=== PATIENT | female | born 1995 | race Caucasian/White ===

== ENCOUNTER 2024-09-21 09:43 | Outpatient (AMB) | payer OTHER, SELFPAY ==
[2024-09-21 09:51] VITALS: BP 136/80; PULSE 97; O2SAT 98; BMI 38.6
--- NOTE | 2024-09-21 09:51 | A.OFFVIS_ITS ---
Vital Signs 09/21/24 09:51 Height 5 ft 3 in Weight 218 lb 0.595 oz BMI 38.6 BP 136/80 Blood Pressure Location Lt brachial Position Sitting Pulse 97 Pulse Source Pulse Oximeter Pulse Oximetry (%) 98 Oxygen Delivery Method Room Air Intake Visit Reasons: Lupus (ATC recs on file) Intake Note: Patient presents for follow up on lupus today. Allergies walnut Allergy (Mild, Verified 09/21/24 09:54) itchy mouth and throat HPI HPI Lupus (ATC recs on file): Details: She feels well. Denies fevers, rash, oral ulcers, dyspnea, pleurisy, urinary symptoms, joint symptoms. Raynaud's phenomenon is controlled on amlodipine 10 mg daily. She was previously on amlodipine 7.5mg daily but dose was increased due to patient experiencing mild hypertension. She continues to go to the gym regularly and is planning to see weight product management internship in September for consideration of medications to help with weight loss. [facility] Medical History (Updated 09/21/24 @ 10:48 by Chava Goddard MD) Hypertension Hidradenitis suppurativa Psoriasis Asthma Raynauds syndrome Lupus (systemic lupus erythematosus) Cyst on ear Hypertrophy, nasal, turbinate Deviated septum Surgical History (Updated 09/21/24 @ 09:59 by Mirlande Almaguer CMA) [place] teeth removed Family History (Updated 09/21/24 @ 10:02 by Mirlande Almaguer CMA) Father High blood cholesterol Hypertension Social History (Updated 09/21/24 @ 10:02 by Mirlande Almaguer CMA) Alcohol intake: current Alcohol intake frequency: a few times a month Patient Tobacco Use Status: Never used Tobacco Use of substances other than those prescribed or required for medical reasons: No Review of Systems Const All systems reviewed & are unremarkable except as noted in HPI and below Physical Exam Vital Signs: Last Vital Signs Pulse 97 09/21/24 09:51 BP 136/80 09/21/24 09:51 Pulse Ox 98 09/21/24 09:51 Oxygen Delivery Method Room Air 09/21/24 09:51 BMI result Body Mass Index 38.6 Const Other: General: Comfortable CVS: RRR Respiratory: clear to auscultation bilaterally. Good respiratory effort Skin: No lesions seen, no digital discoloration or ulceration MSK: No tenderness of any joints. No synovitis. Good range of motion of upper extremities and lower extremities. Results Reviewed Results Reviewed: Labs from 06/16/2024 reviewed. Assessment & Plan Assessment & Plan (1) Lupus (systemic lupus erythematosus): Comment: Diagnosed in 2019 based on positive PERLA 1:320, repeat 1:80, low C4, indeterminate double-stranded DNA, leukopenia, Raynaud's syndrome, hair loss, malar rash, pleurisy and polyarthralgias. Hydroxychloroquine started 09/2019. M ethotrexate 12/2020 to 02/2021 cause nausea vomiting abdominal pain, leflunomide 04/2021 caused diarrhea. Subcutaneous Benlysta started 01/15/2024. She remains in remission on Benlysta subcutaneous injections and hydroxychloroquine 200 mg daily. In the past when she was on hydroxychloroquine 400 mg daily she was experiencing uncontrolled IBS and subsequently hydroxychloroquine 200 mg daily was more well tolerated. If labs to assess lupus disease activity remains stable, I will continue current dose of hydroxychloroquine. Code(s): M32.9 - Systemic lupus erythematosus, unspecified Category: Medical Qualifiers: Systemic lupus erythematosus organ involvement: unspecified Systemic lupus erythematosus type: unspecified Qualified Code(s): M32.9 - Systemic lupus erythematosus, unspecified Plan: Continue hydroxychloroquine 200 mg daily. Requesting recent eye exam for hydroxychloroquine surveillance Continue Benlysta 200 mg every week Labs for disease and drug monitoring ordered. Patient is having labs done at [facility] this week and requested lab requisition Continue regular exercise routine Return to clinic in 3 months (2) Other residential (current) drug therapy: Code(s): Z79.899 - Other residential (current) drug therapy Category: Medical Plan: See above Orders: Orders T Spot TB Today M32.9 - Systemic lupus erythematosus, unspecified, Z79.899 - Other residential (current) drug therapy Alanine Aminotransferase Today Z79.60 - terminal press operator (current) use of unspecified immunomodulators and immunosuppressants Aspartate Amino Transferase Today Z79.60 - long-term (current) use of unspecified immunomodulators and immunosuppressants C Reactive Protein Today M32.9 - Systemic lupus erythematosus, unspecified, Z79.899 - Other keno terminal operator (current) drug therapy Complement C4 Today M32.9 - Systemic lupus erythematosus, unspecified, Z79.899 - Other residential (current) drug therapy Anti DNA DS Antibody Today M32.9 - Systemic lupus erythematosus, unspecified, Z79.899 - Other keno terminal operator (current) drug therapy Protein Creatinine Ratio, Ur Today M32.9 - Systemic lupus erythematosus, unspecified, Z79.899 - Other residential (current) drug therapy Hepatitis B,C Profile Today M32.9 - Systemic lupus erythematosus, unspecified, Z79.899 - Other residential (current) drug therapy Erythrocyte Sedimentation Rate Today M32.9 - Systemic lupus erythematosus, unspecified, Z79.899 - Other keno terminal operator (current) drug therapy Complete Blood Count Auto Diff Today Z79.60 - terminal press operator (current) use of unspecified immunomodulators and immunosuppressants Creatinine Today Z79.60 - terminal press operator (current) use of unspecified immunomodulators and immunosuppressants Complement C3 Today M3.9 - Systemic lupus erythematosus, unspecified, Z79.899 - Other residential (current) drug therapy Anti Extractable Nuclear Ag Today M3.9 - Systemic lupus erythematosus, unspecified, Z79.899 - Other residential (current) drug therapy PERLA Reflex Titer and Pattern Today M32.9 - Systemic lupus erythematosus, unspecified UA w Microscopic Today M32.9 - Systemic lupus erythematosus, unspecified Medications: New belimumab (Benlysta) inject into upper thigh or abdomen; rotate sites PA needed. Continuity of treatment 200 mg subcut QWEEK 4 mL 2RF hydroxychloroquine 200 mg PO DAILY 30 tabs 2RF hydroxychloroquine 200 mg PO DAILY 30 tabs 2RF Coding Level of Care Code Est Pt Level 4 (18104) Complex EM visit Add On G2211 Diagnoses Systemic lupus erythematosus, unspecified SLE type, unspecified organ involvement status M32.9 Systemic lupus erythematosus organ involvement: unspecified Systemic lupus erythematosus type: unspecified Other residential (current) drug therapy Z79.899
== END 2024-09-21 10:46 | disposition home or self-care (01) ==
PROVIDERS: PCP Pediatrics; Visit Provider Internal Medicine Rheumatology
DX: M32.9 Systemic lupus erythematosus, unspecified (principal); Z79.899 Other long term (current) drug therapy
CPT/HCPCS: 99214

== ENCOUNTER 2025-01-18 08:17 | Outpatient (AMB) | payer OTHER, SELFPAY ==
--- NOTE | 2025-01-18 08:22 | A.OFFVIS_ITS ---
Vital Signs 01/18/25 08:27 Height 5 ft 3 in Weight 209 lb 10.554 oz BMI 37.1 BP 140/100 H Blood Pressure Location Rt brachial Position Sitting Pulse 107 H Pulse Source Pulse Oximeter Pulse Oximetry (%) 100 Oxygen Delivery Method Room Air Intake Visit Reasons: Lupus Intake Note: Patient presents for follow up on lupus today. Accompanied by: Self / Same As Patient Allergies walnut Allergy (Mild, Verified 01/18/25 08:27) itchy mouth and throat HPI HPI Lupus: Details: She was feeling fine up until last week. She developed swelling of her left ankle. She attributes the swelling due to possibly spraining it. 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 She will have at least 4 rehearsals in a week. She was able to receive a Medrol Dosepak that she started last Wednesday prescribed by a provider from [facility] via telehealth appointment. On Wednesday she developed a rash in her lower extremities. Denies pruritus or burning sensation. Denies fevers, oral ulcers, dyspnea, pleurisy, dysphagia, joint pain or joint swelling. Ankle swelling resolved with Medrol Dosepak. She has not had any infections. She has not started on any new medications. She reports compliance with hydroxychloroquine and Benlysta subcutaneous injections weekly. [facility] Medical History Hypertension Hidradenitis suppurativa Psoriasis Asthma Raynauds syndrome Lupus (systemic lupus erythematosus) Cyst on ear Hypertrophy, nasal, turbinate Deviated septum Surgical History [place] teeth removed Family History Father High blood cholesterol Hypertension Social History Alcohol intake: current Alcohol intake frequency: a few times a month Patient Tobacco Use Status: Never used Tobacco Review of Systems Const All systems reviewed & are unremarkable except as noted in HPI and below Physical Exam Vital Signs: Last Vital Signs Pulse 107 H 01/18/25 08:27 BP 140/100 H 01/18/25 08:27 Pulse Ox 100 01/18/25 08:27 Oxygen Delivery Method Room Air 01/18/25 08:27 BMI result Body Mass Index 37.1 Const Other: General: Comfortable CVS: RRR Oral: No oral ulcerations Respiratory: clear to auscultation bilaterally. Good respiratory effort Skin: Diffuse non blanchable purpura in lower extremities, upper buttocks and lower abdomen. There are streaks of redness in areas where elastic from under where would lie on her skin. She has purpuric spots on her abdomen and lower to mid back. Some of the purpura in her lower extremities is palpable. MSK: No tender joints. Left ankle mild synovitis. Normal range of motion of upper extremity and lower extremity Assessment & Plan Assessment & Plan (1) Lupus (systemic lupus erythematosus): Comment: She had a recent episode of left ankle joint pain and swelling with subsequent development of palpable purpura involving trunk and lower extremities. Left ankle joint pain and swelling resolved with Medrol Dosepak. It would be rare for Medrol Dosepak to cause the current rash. 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 Differential diagnosis includes ITP/SLE flare, cryoglobulinemic associated vasculitis and cutaneous thrombotic process associated with antiphospholipid syndrome. She recently had labs 01/05, which reveal highly elevated ESR and CRP. At that time she did not have any symptoms. I am checking labs to evaluate lupus disease activity this visit along with workup for her rash including cryoglobulins and antibodies associated with antiphospholipid syndrome. Rheumatology history: Diagnosed in 2019 based on positive PERLA 1:320, repeat 1:80, low C4, indeterminate double-stranded DNA, leukopenia, Raynaud's syndrome, hair loss, malar rash, pleurisy and polyarthralgias. Hydroxychloroquine started 09/2019. Methotrexate 12/2020 to 02/2021 cause nausea vomiting abdominal pain, leflunomide 04/2021 caused diarrhea. Subcutaneous Benlysta started 01/15/2024. In the past when she was on hydroxychloroquine 400 mg daily she was experiencing uncontrolled IBS and subsequently hydroxychloroquine 200 mg daily was more well tolerated. Code(s): M32.9 - Systemic lupus erythematosus, unspecified Category: Medical Qualifiers: Systemic lupus erythematosus organ involvement: unspecified Systemic lupus erythematosus type: unspecified Qualified Code(s): M32.9 - Systemic lupus erythematosus, unspecified Plan: Patient has an appointment with Dermatology at [facility] in February. I have asked her to contact Dermatology for urgent evaluation next week for skin biopsy to aid in diagnosis and further management. She will contact office if she is unable to obtain an urgent appointment with Dermatology for assistance. Labs ordered. Per patient's insurance she needs to have labs done at [facility]. Empiric treatment with prednisone 40 mg daily and GI prophylaxis omeprazole 20 mg daily while on prednisone. She will call office in 2 weeks for clinical update Continue hydroxychloroquine 200 mg daily for now. After lab results are back, I will consider increasing hydroxychloroquine to 400 mg daily Continue Benlysta subcutaneous injection weekly Return to clinic in 1-2 months (2) Other emt intermediate (current) drug therapy: Code(s): Z79.899 - Other senior care (current) drug therapy Category: Medical Plan: See above Orders: Orders Alanine Aminotransferase Today M32.9 - Systemic lupus erythematosus, unspecified UA w Microscopic Today M32.9 - Systemic lupus erythematosus, unspecified Lupus Anticoagulant Panel Today M32.9 - Systemic lupus erythematosus, unspecified Beta-2 Glycoprotein Antibody Today M32.9 - Systemic lupus erythematosus, unspecified Cryoglobulin Today M32.9 - Systemic lupus erythematosus, unspecified, R21 - Rash and other nonspecific skin eruption Vitamin D 25-OH Total Today M32.9 - Systemic lupus erythematosus, unspecified Complete Blood Count Auto Diff Today Z79.60 - correction (current) use of unspecified immunomodulators and immunosuppressants Creatinine Today Z79.60 - manager intermediate (current) use of unspecified immunomodulators and immunosuppressants ANCA Vasculitides Today M32.9 - Systemic lupus erythematosus, unspecified Sm Sm/REGULATORY SERVICES CONSULTANT Antibodies Today M32.9 - Systemic lupus erythematosus, unspecified Complement C3 Today M32.9 - Systemic lupus erythematosus, unspecified Complement C4 Today M32.9 - Systemic lupus erythematosus, unspecified Protein Creatinine Ratio, Ur Today M32.9 - Systemic lupus erythematosus, unspecified Proteinase 3 PR3 Antibodies Today M32.9 - Systemic lupus erythematosus, unspecified Myeloperoxidase Antibody Today M32.9 - Systemic lupus erythematosus, un specified Aspartate Amino Transferase Today M32.9 - Systemic lupus erythematosus, unspecified Cardiolipin Antibodies Today M32.9 - Systemic lupus erythematosus, unspecified Medications: New prednisone Take 2 tablets daily with food. Call Dr. Goddard in 2 weeks for update. 40 mg (2 x 20 mg) PO DAILY 60 tabs 0RF prednisone Take 2 tablets daily with food 40 mg (2 x 20 mg) PO DAILY 60 tabs 0RF omeprazole Take with prednisone. GI ppx. 20 mg PO DAILY 30 caps 2RF omeprazole Take with prednisone. GI ppx. 20 mg PO DAILY 30 caps 2RF Coding Level of Care Code Est Pt Level 4 (93271) Complex EM visit Add On G2211 Diagnoses Systemic lupus erythematosus, unspecified SLE type, unspecified organ involvement status M32.9 Systemic lupus erythematosus organ involvement: unspecified Systemic lupus erythematosus type: unspecified Other emt intermediate (current) drug therapy Z79.899 Time Spent (min) 30
[2025-01-18 08:27] VITALS: BP 140/100; PULSE 107; O2SAT 100; BMI 37.1
--- OUTSIDE RECORDS SUMMARY | 2025-01-18 08:33 | XMS_ITS | Clinical Summary ---
Author Organization [address] Address [address] [place] [phone] Phone Care Team Providers Care Flight Deck Officer Name Role Phone Danyell Sams MD Primary Care Provider [phone] Allergies Active Allergy Reactions Criticality Noted Date Comments Prochlorperazine Unknown 01/07/2024 Raw Fruit Other (See Comments) Medium 01/07/2024 Itchy mouth Metoclopramide Unknown 01/07/2024 Raw Vegetable Other (See Comments) Medium 01/07/2024 Itchy mouth Tricyclic Antidepressants And Tricyclic Compounds Shock 01/07/2024 Venlafaxine Palpitations,Othe r (See Comments) Medium 01/07/2024 Heart palpitations, hyperactivity [place] Other (See Comments) Medium 01/07/2024 Itchy mouth Medications amLODIPine (NORVASC) 5 mg tablet Take 1 tablet (5 mg total) by mouth daily. Active hydroxychloroqui ne (PLAQUENIL) 200 mg tablet Take 1 tablet (200 mg total) by mouth daily. Active belimumab (BENLYSTA) 200 mg/mL auto-injector Inject 1 pen (200 mg total) under the skin once a week. 4 mL 1 05/01/2024 8:25 AM EDT Active levonorgestreL (LILETTA) IUD 52 mg (20.1 mcg/24 hour) Active amLODIPine (NORVASC) 2.5 mg tablet Active carboxymethylcel lulose (REFRESH PLUS) 0.5 % ophthalmic solution in dropperette Place 1 drop into both eyes as needed for dry eyes. Active amLODIPine (NORVASC) 10 mg tabletIndication s:Systemic lupus erythematosus, unspecified SLE type, unspecified organ involvement status (HC Code),Psoriasis, [place] allergy,Mild asthma without complication, unspecified whether persistent,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 90 tablet 3 4 Active EPINEPHrine 0.3 mg/0.3 mL Inj auto-injectorInd ications:Systemi c lupus erythematosus, unspecified SLE type, unspecified organ involvement status (HC Code),Psoriasis, [place] allergy,Mild asthma without complication, unspecified whether persistent,Ernestina ud's disease without gangrene Inject 0.3 mg into the muscle once as needed for anaphylaxis for up to 1 dose. 2 each 2 4 Active triamcinolone (KENALOG) 0.1 % creamIndications :plaque psoriasis Apply topically 2 (two) times daily. 450 g 3 4 Active albuterol sulfate 90 mcg/actuation HFA aerosol inhalerIndicatio ns:Systemic lupus erythematosus, unspecified SLE type, unspecified organ involvement status (HC Code),Psoriasis, [place] allergy,Mild asthma without complication, unspecified whether persistent,Ernestina ud's disease without gangrene Inhale 2 puffs into the lungs every 6 (six) hours as needed for wheezing. 6.7 g 4 Active belimumab (BENLYSTA) 200 mg/mL auto-injector Inject 1 pen (200 mg total) under the skin every 7 days, inject into upper thigh or abdomen; rotate sites, continuity of treatment. 4 mL 2 12/05/2024 8:48 AM EDT 4 Active methylPREDNISolo ne (MEDROL DOSEPACK) 4 mg tabletIndication s:Systemic lupus erythematosus, unspecified SLE type, unspecified organ involvement status (HC Code) follow package directions 21 tablet 5 01/20/20 Active Active Problems Problem Noted Date Diagnosed Date Hidradenitis suppurativa 01/07/2024 Psoriasis 01/07/2024 Raynaud phenomenon 01/07/2024 SLE (systemic lupus erythematosus) 01/07/2024 Encounters Date Type Department Care Team Description 01/12/2025 11:30 AM EDT Telemedicine [facility] [address] [place] [address] Cely Judge PA Systemic lupus erythematosus, unspecified SLE type, unspecified organ involvement status (HC Code) (Primary Dx) 01/12/2025 Nurse Triage [facility] Call Center [address] [place] [address] Trey Clancy RN 11/30/2024 Specialty Pharmacy [facility] [address] [place] [address] Ayad Veloz CPHT 10/24/2024 Specialty [facility] [address] [place] [address] Joaquina Telles, SHERI from Last 3 Months Immunizations Name Administration Dates Next Due COVID-19, MODERNA 12Y+, 0.5 mL 11/13/2020,2020 Influenza, injectable, MDCK, quad, preservative free 07/31/2023,06/27/2020 Influenza, split virus, trivalent, Preservative Free 08/02/2024 Family History Medical History Relation Name Comments Crohn's disease Maternal Aunt Rheum arthritis Paternal Uncle Relation Name Status Comments Maternal Aunt Alive Paternal Uncle Alive Social History Tobacco Use Types Packs/Day Years Used Date Smoking Tobacco: Never Smokeless Tobacco: Never Tobacco Cessation:Counseling Given: Not Answered Alcohol Use Standard Drinks/Week Comments Yes 0 (1 standard drink = 0.6 oz pur e alcohol) social - 1 glass wine weekly Comments Unknown Sex and Gender Information Value Date Recorded Sex Assigned at Not on file Legal Sex Female 11:26 AM EDT Gender Identity Female 04/20/2024 8:54 PM EDT Sexual Orientation Straight 04/20/2024 8: 54 PM EDT Last Filed Vital Signs Vital Sign Reading Time Taken Comments Blood Pressure 166/122 10/18/2024 4:32 PM EST Pulse 118 10/18/2024 4:32 PM EST Temperature 36 ??C (96.8 ??F) 10/18/2024 4:32 PM EST Respiratory Rate - - Oxygen Saturation 98% 10/18/2024 4:32 PM EST Inhaled Oxygen Concentration - - Weight 96.2 kg (212 lb) 10/18/2024 4:32 PM EST Height 162.6 cm (5' 4 ) 08/18/2024 9:25 AM EST Body Mass Index 36.39 08/18/2024 9:25 AM EST Plan of Treatment Upcoming Encounters Date Type Department Care Team (Latest Contact Info) Description 03/19/2025 2:45 PM EDT Office Visit Medical Dermatology at 2 [facility] 2 [facility] [address] [place] [address] Danyell Sams MD [address] [place] [phone] Wild Garcia MD 2 [facility] [address] [place] [phone] 04/26/2025 2:30 PM EDT Ophthalmology Imaging Ophthalmology at [address] [facility] [address] [place] [address] 05/14/2025 8:15 AM EDT Telemedicine Ophthalmology at [address] [facility] [address] [place] [address] Jayne Dominguez MD [address] [place] [phone] Health Maintenance Due Date Last Done Comments HIV screening 2009 Hepatitis C screening 2014 Pneumococcal Vaccine (2 - 49 years) (1 of 2 - PCV) 2015 Tetanus adult (Td q 10,TDAP once) 2016 Cervical cancer screening 2017 Covid-19 vaccine series ( season) 2024 07/31/2023, 11/13/2020, 10/16/2020 Influenza vaccine 05/28/2025 08/02/2024, 07/31/2023, 06/27/2020 RSV Immunization (1 - 1-dose 75+ series) 2071 Meningococcal Vaccine Aged Out No toshia janny eligible based on patient's age to complete this topic Goals Goal Patient Goal Type Associated Problems Recent Progress Patient-Stated? Author RxSp Therapeutic Goal General Not started(01/06 12:10 PM EDT) No Margarita Wu, Yesica Note: Lupus: Prevent increased number of flares. Good symptom control MTPs must be opened for patients not making appropriate progress towards their established therapeutic goals. Patient's progress towards goal: Insurance [employer] on file CIGNA on file CIGNA on file Care Teams Flight Deck Officer Relationship Specialty Start Date End Date Danyell Sams MD [address] [place] [phone] PCP - General Internal Medicine 08/18/24
--- OUTSIDE RECORDS SUMMARY | 2025-01-18 08:33 | XMS_ITS ---
Author Organization [address] Address [address] [place] [phone] Phone Care Team Providers Care Carpenter Assistant Name Role Phone Danyell Sams MD Primary Care Provider [phone] Rx Lupus Status:Enrolled (Active) Start date:01/06/2024 Enrollment date:01/07/2024 Enrollment reason:Identified from a specialty prescription Current support & services provided:Refill Management, Copay Maximizer Linked medications:belimumab (Active) Linked problems:SLE (systemic lupus erythematosus) (HC Code) (Active) Overview 04/03/24: pt is [facility], opted out of clin management -DA Continued Care and Services Coordination
--- OUTSIDE RECORDS SUMMARY | 2025-01-18 08:33 | XMS_ITS | Encounter Summary ---
Author Organization [facility] Address [address] [place] [id number] Care Team Providers Care Warehouse Incentive Selector Name Role Phone Danyell Sams MD Primary Care Provider [phone] Encounter Details Date Type Department Care Team ( Contact Info) Description 04/07/2023 Transcribed Orders [address] [address] Lawrence Lee MD [address] [place] [phone] Pre-employment health screening examination (Primary Dx) Social History Tobacco Use Types Packs/Day Years Used Date Smoking Tobacco: Never Assessed Comments Unknown Sex and Gender Information Value Date Recorded Sex Assigned at Not on file Legal Sex Female 11:26 AM EDT Gender Identity Female 04/20/2024 8:54 PM EDT Sexual Orientation Straight 04/20/2024 8: 54 PM EDT documented as of this encounter Plan of Treatment Upcoming Encounters Date Type Department Care Team (Latest Contact Info) Description 03/19/2025 2:45 PM EDT Office Visit Medical Dermatology at [address] [place] [address] [address] [place] [address] Danyell Sams MD [address] [place] [phone] Wild Garcia MD [address] [place] [address] [place] [phone] 04/26/2025 2:30 PM EDT Ophthalmology Imaging Ophthalmology at [address] [place] [address] 05/14/2025 8:15 AM EDT Telemedicine Ophthalmology at [address] [facility] [address] [facility] [place] [address] Jayne Dominguez MD [address] [place] [address] documented as of this encounter Results * Hepatitis B surface antibody ([facility] ) (04/07/2023 11:29 AM EDT) [facility] Hepatitis B Surface Antibody 27.14 > or = 12 mIU/mL 04/07/2023 6:07 PM EDT [facility]PART[facility] OF [facility] MEDICINE Comment: Patient is considered to be immune to infection with HBV. It has not been determined what the clinical significance is for values greater than or equal to 12 mIU/ml, other than the individual is considered to be immune to HBV infection. This assay was restandardized from the 1st to the 2nd WHO International Reference Standard on 03/08/18. A slight upward shift in values was noted. Blood Venipuncture / Unknown 04/07/2023 11:29 AM EDT 04/07/2023 3:56 PM EDT Lawrence Lee MD LAB BLOOD ORDERABLES nal Result [facility]PART[facility] OF [facility]ATORY [facility]ICINE [address] [place] [id number], [facility] [phone] * (ABNORMAL) QuantiFERON-TB (04/07/2023 11:29 AM EDT) [facility] QuantiFERON-TB Gold In-Tube Indetermi sherin(A) Negative 04/08/2023 7:48 PM EDT [facility] Comment: Result repeated and confirmed INDETERMINATE: Results are indeterminate for TB Antigen responsiveness. Indeterminate results may be caused by insufficient lymphocytes or inability of the patient's lymphocytes to generate IFN-gamma, reduced lymphocyte activity due to prolonged specimen transport or improper specimen handling, the presence of heterophile antibodies, or to intrinsic IFN-gamma secretion. Diagnoses of M. tuberculosis infection and decisions about medical or public health management should not be based on IGRA or TST results alone, but should include consideration of epidemiologic and medical history as well as other clinical information. This is a qualitative test. The TB antigen IU/mL value is required for documentation on certain government reporting forms (e.g., Form I-693), but this value should not be used to monitor disease progression or response to therapy. An overall Negative result does not completely rule out TB infection. An overall Positive result does not differentiate active from latent tuberculosis. As of April 12, 2018, this test is being performed using the QuantiFERON TB Gold Plus assay from [employer] which includes the detection of response to CD8+ T cells and as of November 25, 2020, it is being performed on an automated platform developed by [employer] in partnership with [employer]. Blood Venipuncture / Unknown 04/07/2023 11:29 AM EDT 04/07/2023 3:54 PM EDT Lawrence Lee MD LAB BLOOD ORDERABLES Fi nal Result [facility]IC[facility] [address] [place] [address] documented in this encounter Visit Diagnoses Diagnosis Pre-employment health screening examination- Primary Health examination of defined subpopulation documented in this encounter Care Teams Warehouse Incentive Selector Relationship Specialty Start Date End Date D[place]ell [place] [id number] PCP - General Internal Medicine 08/18/24 documented as of this encounter
--- OUTSIDE RECORDS SUMMARY | 2025-01-18 08:33 | XMS_ITS ---
Author Name [facility] Organization Unknown History of Medication Use Medication Directions Dispensed Refills Start Date End Date Status methylPREDNISolone (MEDROL DOSEPACK) 4 mg tablet follow package directions 5 active belimumab (BENLYSTA) 200 mg/mL auto-injector Inject 1 pen (200 mg total) under the skin every 7 days, inject into upper thigh or abdomen; rotate sites, continuity of treatment. 4 active albuterol sulfate 90 mcg/actuation HFA aerosol inhaler Inhale 2 puffs into the lungs every 6 (six) hours as needed for wheezing. 4 active amLODIPine (NORVASC) 10 mg tablet Take 1 tablet (10 mg total) by mouth daily. 4 active EPINEPHrine 0.3 mg/0.3 mL Inj auto-injector Inject 0.3 mg into the muscle once as needed for anaphylaxis for up to 1 dose. 4 active triamcinolone (KENALOG) 0.1 % cream Apply topically 2 (two) times daily. 4 active belimumab (BENLYSTA) 200 mg/mL auto-injector Inject 1 pen (200 mg total) under the skin once a week. 4 active amLODIPine (NORVASC) 2.5 mg tablet active amLODIPine (NORVASC) 5 mg tablet Take 1 tablet (5 mg total) by mouth daily. active carboxymethylcellulose (REFRESH PLUS) 0.5 % ophthalmic solution in dropperette Place 1 drop into both eyes as needed for dry eyes. active hydroxychloroquine (PLAQUENIL) 200 mg tablet Take 1 tablet (200 mg total) by mouth daily. active levonorgestreL (LILETTA) IUD 52 mg (20.1 mcg/24 hour) active Problems Problem Status Onset Date Problem Type Date of Resoluti on Source SLE (systemic lupus erythematosus) active 2024-01-07 [facility]Act [facility] Hidradenitis suppurativa active 2024-01-07 [facility]Act [facility] Psoriasis active 2024-01-07 ProblemAct [facility] C Raynaud phenomenon active 2024-01-07 ProblemAct [facility] Immunizations Vaccine Date Source Lot Number Status Influenza, split virus, triv alent, Preservative Free 08/02/2024 [facility] [id number] completed Influenza, injectable, MDCK, quad, preservative free 07/31/2023 [facility] [id number] completed COVID-19, MODERNA 12Y+, 0.5 mL 11/13/2020 [facility] 031L2 0A completed COVID-19, MODERNA 12Y+, 0.5 mL 10/16/2020 [facility] 012L2 0A completed Influenza, injectable, MDCK, quad, preservative free 06/27/2020 [facility] [id number] completed Encounters Encounter Type Encounter Reason Primary Diagnosis Location Date Ambulatory [facility] 01/13/20 25
== END 2025-01-18 09:11 | disposition home or self-care (01) ==
LOC: HO.RHES 08:18
PROVIDERS: Visit Provider Internal Medicine Rheumatology
DX: M32.9 Systemic lupus erythematosus, unspecified (principal); Z79.899 Other long term (current) drug therapy
CPT/HCPCS: 99214

== ENCOUNTER → 2025-01-18 08:17 | Outpatient (BNVA) | payer OTHER, SELFPAY | PROVIDERS: Visit Provider Internal Medicine Rheumatology ==

== ENCOUNTER 2025-03-29 13:50 | Outpatient (AMB) | payer OTHER, SELFPAY ==
--- OUTSIDE RECORDS SUMMARY | 2025-03-29 13:56 | XMS_ITS | Clinical Summary ---
Author Organization [address] Address [address] [place] [id number] Phone Care Team Providers Care Cabin Crew Name Role Phone Danyell Sams MD Primary Care Provider [phone] Allergies Active Allergy Reactions Criticality Noted Date Comments Prochlorperazine Unknown 01/07/2024 Raw Fruit Other (See Comments) Medium 01/07/2024 Itchy mouth Metoclopramide Unknown 01/07/2024 Raw Vegetable Other (See Comments) Medium 01/07/2024 Itchy mouth Tricyclic Antidepressants And Tricyclic Compounds Shock 01/07/2024 Venlafaxine Palpitations,Othe r (See Comments) Medium 01/07/2024 Heart palpitations, hyperactivity Koloa Other (See Comments) Medium 01/07/2024 Itchy mouth Medications amLODIPine (NORVASC) 5 mg tablet Take 1 tablet (5 mg total) by mouth daily. Active hydroxychloroq uine (PLAQUENIL) 200 mg tablet Take 1 tablet (200 mg total) by mouth daily. Active belimumab (BENLYSTA) 200 mg/mL auto-injector Inject 1 pen (200 mg total) under the skin once a week. 4 mL 1 4 8:25 AM EDT 03/28/20 24 Active levonorgestreL (LILETTA) IUD 52 mg (20.1 mcg/24 hour) Active amLODIPine (NORVASC) 2.5 mg tablet Active carboxymethylc ellulose (REFRESH PLUS) 0.5 % ophthalmic solution in dropperette Place 1 drop into both eyes as needed for dry eyes. Active amLODIPine (NORVASC) 10 mg tabletIndicati ons:Systemic lupus erythematosus, unspecified SLE type, unspecified organ involvement status (HC Code),Psoriasi s,Koloa allergy,Mild asthma without complication, unspecified whether persistent (HC CODE),Raynaud' s disease without gangrene Take 1 tablet (10 mg total) by mouth daily. 90 tablet 3 08/18/20 24 Active EPINEPHrine 0.3 mg/0.3 mL Inj auto-injectorI ndications:Sys temic lupus erythematosus, unspecified SLE type, unspecified organ involvement status (HC Code),Psoriasi s,Koloa allergy,Mild asthma without complication, unspecified whether persistent (HC CODE),Raynaud' s disease without gangrene Inject 0.3 mg into the muscle once as needed for anaphylaxis for up to 1 dose. 2 each 2 08/18/20 24 Active triamcinolone (KENALOG) 0.1 % creamIndicatio ns:plaque psoriasis Apply topically 2 (two) times daily. 450 g 3 08/18/20 24 Active belimumab (BENLYSTA) 200 mg/mL auto-injector Inject 1 pen (200 mg total) under the skin once every 7 days. Continue to inject into upper thigh or abdomen; rotate sites. 4 mL 2 5 10:52 AM EDT 01/18/20 25 Active hydroxychloroq uine (PLAQUENIL) 200 mg tablet Take 1 tablet (200 mg total) by mouth daily. 30 tablet 2 5 10:52 AM EDT 01/18/20 25 Active albuterol sulfate 90 mcg/actuation HFA aerosol inhalerIndicat ions:Systemic lupus erythematosus, unspecified SLE type, unspecified organ involvement status (HC Code),Psoriasi s,Koloa allergy,Mild asthma without complication, unspecified whether persistent (HC CODE),Raynaud' s disease without gangrene Inhale 2 puffs into the lungs every 6 (six) hours as needed for wheezing. 6.7 g 03/23/20 25 Active albuterol sulfate 90 mcg/actuation HFA aerosol inhalerIndicat ions:Systemic lupus erythematosus, unspecified SLE type, unspecified organ involvement status (HC Code),Psoriasi s,Koloa allergy,Mild asthma without complication, unspecified whether persistent (HC CODE),Raynaud' s disease without gangrene Inhale 2 puffs into the lungs every 6 (six) hours as needed for wheezing. 6.7 g 08/18/20 24 025 Discontinued(! Reorder (No Cancel Msg)) predniSONE (DELTASONE) 5 mg tablet Take 1 tablet (5 mg) orally daily; Taper prednisone as prescribed. 7 tablet 4:26 PM EDT 02/21/20 025 Discontinued Active Problems Problem Noted Date Diagnosed Date Hidradenitis suppurativa 01/07/2024 Psoriasis 01/07/2024 Raynaud phenomenon 01/07/2024 SLE (systemic lupus erythematosus) (HC Code) 08/2024 Encounters Date Type Department Care Team Description 03/27/2025 Results Follow-Up [facility] [address] [address] Danyell Sams MD Vitamin D 25 (vitamin D status)(MinMetabLab) (Y), Hemoglobin A1c, Lipid panel, Additional followed-up results: 4 03/26/2025 4:52 PM EDT - 03/26/2025 11:59 PM EDT Hospital Encounter [facility] [id number] Danyell Sams MD Systemic lupus erythematosus, unspecified (HC Code) ; Encounter for long-term (current) drug use; Systemic lupus erythematosus (HC Code) ; Systemic lupus erythematosus, unspecified SLE type, unspecified organ involvement status (HC Code) ; Psoriasis; Koloa allergy; Mild asthma without complication, unspecified whether persistent (HC CODE); Raynaud's disease without gangrene; Hidradenitis suppurativa Discharge Disposition: Home or Self Care 03/22/2025 Specialty Pharmacy [facility] [address] [place] [address] Roma Díaz CPHT 03/22/2025 Refill [facility] [address] [address] Danyell Sams MD Medication Refill 02/16/2025 5:12 PM EDT - 02/16/2025 11:59 PM EDT Hospital Encounter [facility] [address] [address] Chava Goddard MD Systemic lupus erythematosus, unspecified (HC Code) Discharge Disposition: Home or Self Care 02/16/2025 Transcribed Orders [facility] [address] [address] Chava Goddard MD Systemic lupus erythematosus, unspecified (HC Code) (Primary Dx); Encounter for long-term (current) drug use; Systemic lupus erythematosus (HC Code) 02/14/2025 Telephone Medical Dermatology at [address] [place] [address], [address] [address] Stevie Cornelius MD Other 02/13/2025 4:00 PM EDT Office Visit Medical Dermatology at [address] [place] [address], [address] [address] Stevie Cornelius MD Systemic lupus erythematosus, unspecified SLE type, unspecified organ involvement status (HC Code) (Primary Dx); Raynaud's phenomenon without gangrene 02/13/2025 Specialty Pharmacy [facility] [address] [place] [address] Tressa Quintero CPHT 01/22/2025 9:15 AM EDT - 01/22/2025 11:59 PM EDT Hospital Encounter [facility] [address] [place] [address] [facility] Systemic lupus erythematosus (HC Code) ; Rash and other nonspecific skin eruption Discharge Disposition: Home or Self Care 01/22/2025 Transcribed Orders [facility] [address] [place] [address] Chava Goddard MD Systemic lupus erythematosus (HC Code) (Primary Dx); Rash and other nonspecific skin eruption 01/19/2025 Scanned Document Medical Dermatology at [address] [place] [address], [address] [place] [address] Chava Goddard MD 01/19/2025 Specialty Pharmacy [facility] [address] [place] [address] Tressa Quintero CPHT 01/12/2025 11:30 AM EDT Telemedicine [facility] [address] [place] [address] Cely Judge PA Systemic lupus erythematosus, unspecified SLE type, unspecified organ involvement status (HC Code) (Primary Dx) 01/12/2025 Nurse Triage [facility] [address] [place] [address] Trey Clancy RN from Last 3 Months Immunizations Immunization Administration Dates Next Due COVID-19, MODERNA 12Y+, 0.5 mL 11/13/2020,2020 Influenza, injectable, MDCK, quad, preservative free 07/31/2023,06/27/2020 Influenza, split virus, trivalent, Preservative Free 08/02/2024 Family History Medical History Relation Name Comments Crohn's disease Maternal Aunt Rheumatoid arthritis Paternal Uncle Relation Name Status Comments [...] 118 10/18/2024 4:32 PM EST Temperature 36 C (96.8 F) 10/18/2024 4:32 PM EST Respiratory Rate - - Oxygen Saturation 98% 10/18/2024 4:32 PM EST Inhaled Oxygen Concentration - - Weight 96.2 kg (212 lb) 10/18/2024 4:32 PM EST Height 162.6 cm (5' 4 ) 08/18/2024 9:25 AM EST Body Mass Index 36.39 08/18/2024 9:25 AM EST Plan of Treatment Upcoming Encounters Date Type Department Care Team (Latest Contact Info) Description 04/26/2025 2:30 PM EDT Ophthalmology Imaging Ophthalmology at [address] [facility] [address] [place] [address] 05/14/2025 8:15 AM EDT Telemedicine Ophthalmology at [address] [facility] [address] [place] [address] Jayne Dominguez MD [address] [place] [address] Health Maintenance Due Date Last Done Comments HIV screening 2009 Pneumococcal Vaccine (2 - 49 years) (1 of 2 - PCV) 2015 Tetanus adult (Td q 10,TDAP once) 2016 Cervical cancer screening 2017 Covid-19 vaccine series ( season) 2024 07/31/2023, 11/13/2020, 10/16/2020 Influenza vaccine 05/28/2025 08/02/2024, 07/31/2023, 06/27/2020 RSV Immunization (1 - 1-dose 75+ series) 2071 Hepatitis C screening Completed 03/26/2025 Meningococcal Vaccine Aged Out No toshia janny eligible based on patient's age to complete this topic Goals Goal Patient Goal Type Associated Problems Recent Progress Patient-Stated? Author RxSp Therapeutic Goal General Not started(01/06 12:10 PM EDT) No Margarita Wu, PharmD Note: Lupus: Prevent increased number of flares. Good symptom control MTPs must be opened for patients not making appropriate progress towards their established therapeutic goals. Patient's progress towards goal: Procedures Procedure Name Priority Date/Time Associated Diagnosis Comments COMPREHENSIVE METABOLIC PANEL Routine 03/26/2025 5:13 PM EDT Systemic lupus erythematosus, unspecified SLE type, unspecified organ involvement status (HC Code) Psoriasis Koloa allergy Mild asthma without complication, unspecified whether persistent (HC CODE) Raynaud's disease without gangrene Hidradenitis suppurativa CBC AND DIFFERENTIAL Routine 03/26/2025 5:13 PM EDT Systemic lupus erythematosus, unspecified SLE type, unspecified organ involvement status (HC Code) Psoriasis Koloa allergy Mild asthma without complication, unspecified whether persistent (HC CODE) Raynaud's disease without gangrene Hidradenitis suppurativa T4, FREE Routine 03/26/2025 5:13 PM EDT Systemic lupus erythematosus, unspecified SLE type, unspecified organ involvement status (HC Code) Psoriasis Koloa allergy Mild asthma without complication, unspecified whether persistent (HC CODE) Raynaud's disease without gangrene Hidradenitis suppurativa COMPREHENSIVE METABOLIC PANEL Routine 03/26/2025 5:13 PM EDT Systemic lupus erythematosus, unspecified SLE type, unspecified organ involvement status (HC Code) Psoriasis Koloa allergy Mild asthma without complication, unspecified whether persistent (HC CODE) Raynaud's disease without gangrene Hidradenitis suppurativa CBC WITH AUTO DIFFERENTIAL Routine 03/26/2025 5:13 PM EDT Systemic lupus erythematosus, unspecified SLE type, unspecified organ involvement status (HC Code) Psoriasis Koloa allergy Mild asthma without complication, unspecified whether persistent (HC CODE) Raynaud's disease without gangrene Hidradenitis suppurativa DNA ANTIBODY, DOUBLE-STRANDED Routine 03/26/2025 5:13 PM EDT Systemic lupus erythematosus, unspecified (HC Code) Encounter for long-term (current) drug use Systemic lupus erythematosus (HC Code) VITAMIN D, 25-HYDROXY Routine 03/26/2025 5:13 PM EDT Systemic lupus erythematosus, unspecified (HC Code) Encounter for long-term (current) drug use Systemic lupus erythematosus (HC Code) BLAKELY AND COMMUNITY SERVICES COORDINATOR (CHITRA) ANTIBODIES, IGG (BH GH LMW Q YH) Routine 03/26/2025 5:13 PM EDT Systemic lupus erythematosus, unspecified (HC Code) Encounter for long-term (current) drug use Systemic lupus erythematosus (HC Code) MYELOPEROXIDASE ANTIBODY Routine 03/26/2025 5:13 PM EDT Systemic lupus erythematosus, unspecified (HC Code) Encounter for long-term (current) drug use Systemic lupus erythematosus (HC Code) HEPATITIS C AB WITH REFLEX TO HCV PCR Routine 03/26/2025 5:13 PM EDT Systemic lupus erythematosus, unspecified (HC Code) Encounter for long-term (current) drug use Systemic lupus erythematosus (HC Code) HEPATITIS B SURFACE ANTIGEN (BH GH L LMW YH) Routine 03/26/2025 5:13 PM EDT Systemic lupus erythematosus, unspecified (HC Code) Encounter for long-term (current) drug use Systemic lupus erythematosus (HC Code) C4 COMPLEMENT (BH GH L LMW YH) Routine 03/26/2025 5:13 PM EDT Systemic lupus erythematosus, unspecified (HC Code) Encounter for long-term (current) drug use Systemic lupus erythematosus (HC Code) C3 COMPLEMENT Routine 03/26/2025 5:13 PM EDT Systemic lupus erythematosus, unspecified (HC Code) Encounter for long-term (current) drug use Systemic lupus erythematosus (HC Code) C-REACTIVE PROTEIN (CRP) Routine 03/26/2025 5:13 PM EDT Systemic lupus erythematosus, unspecified (HC Code) Encounter for long-term (current) drug use Systemic lupus erythematosus (HC Code) VITAMIN D 25 (VITAMIN D STATUS)(MINMETABLAB)(YH ) Routine 03/26/2025 5:13 PM EDT Systemic lupus erythematosus, unspecified SLE type, unspecified organ involvement status (HC Code) Psoriasis Koloa allergy Mild asthma without complication, unspecified whether persistent (HC CODE) Raynaud's disease without gangrene Hidradenitis suppurativa TSH W/REFLEX TO FT4 (BH GH LMW Q YH) Routine 03/26/2025 5:13 PM EDT Systemic lupus erythematosus, unspecified SLE type, unspecified organ involvement status (HC Code) Psoriasis Koloa allergy Mild asthma without complication, unspecified whether persistent (HC CODE) Raynaud's disease without gangrene Hidradenitis suppurativa LIPID PANEL Routine 03/26/2025 5:13 PM EDT Systemic lupus erythematosus, unspecified SLE type, unspecified organ involvement status (HC Code) Psoriasis Koloa allergy Mild asthma without complication, unspecified whether persistent (HC CODE) Raynaud's disease without gangrene Hidradenitis suppurativa HEMOGLOBIN A1C Routine 03/26/2025 5:13 PM EDT Systemic lupus erythematosus, unspecified SLE type, unspecified organ involvement status (HC Code) Psoriasis Koloa allergy Mild asthma without complication, unspecified whether persistent (HC CODE) Raynaud's disease without gangrene Hidradenitis suppurativa URINE MICROSCOPIC ( GH LMW YH) Routine 03/26/2025 5:01 PM EDT Systemic lupus erythematosus, unspecified (HC Code) Encounter for long-term (current) drug use Systemic lupus erythematosus (HC Code) PROTEIN, TOTAL W/CREATININE, URINE, RANDOM ( GH LMW YH) Routine 03/26/2025 5:01 PM EDT Systemic lupus erythematosus, unspecified (HC Code) Encounter for long-term (current) drug use Systemic lupus erythematosus (HC Code) URINALYSIS-MACROSCOPIC W/REFLEX MICROSCOPIC Routine 03/26/2025 5:01 PM EDT Systemic lupus erythematosus, unspecified (HC Code) Encounter for long-term (current) drug use Systemic lupus erythematosus (HC Code) URINE MICROSCOPIC ( GH LMW YH) Routine 02/16/2025 5:17 PM EDT Systemic lupus erythematosus, unspecified (HC Code) URINALYSIS-MACROSCOPIC W/REFLEX MICROSCOPIC Routine 02/16/2025 5:17 PM EDT Systemic lupus erythematosus, unspecified (HC Code) CRYOGLOBULIN Routine 01/22/2025 9:38 AM EDT Systemic lupus erythematosus (HC Code) Rash and other nonspecific skin eruption from Last 3 Months Results * (ABNORMAL) Comprehensive metabolic panel (03/26/2025 5:13 PM EDT) Sodium 144 136 - 144 mmol/L 03/26/2025 8:33 PM EDT COUNT INCLUDES [facility] DEPARTMENT OF LABORATORY MEDICINE Potassium 4.4 3.3 - 5.3 mmol/L 03/26/2025 8:33 PM [facility] DEPARTMENT OF LABORATORY MEDICINE Chloride 103 98 - 107 mmol/L 03/26/2025 8:33 PM [facility] DEPARTMENT OF LABORATORY MEDICINE CO2 24 20 - 30 mmol/L 03/26/2025 8:33 PM [facility] DEPARTMENT OF LABORATORY MEDICINE Anion Gap 17 7 - 17 03/26/2025 8:33 PM T COUNT INCLUDES [facility] DEPARTMENT OF LABORATORY MEDICINE Glucose 82 70 - 100 mg/dL 03/26/2025 8:33 PM [facility] DEPARTMENT OF LABORATORY MEDICINE BUN 5(L) 6 - 20 mg/dL 03/26/2025 8:33 PM [facility] DEPARTMENT OF LABORATORY MEDICINE Creatinine 0.72 0.40 - 1.30 mg/dL 03/26/2025 8:33 PM [facility] DEPARTMENT OF LABORATORY MEDICINE Calcium 10.0 8.8 - 10.2 mg/dL 03/26/2025 8:33 PM [facility] DEPARTMENT OF LABORATORY MEDICINE BUN/Creatinine Ratio 6.9(L) 8.0 - 23.0 03/26/2025 8:33 PM [facility] DEPARTMENT OF LABORATORY MEDICINE Total Protein 7.7 5.9 - 8.3 g/dL 8:33 PM [facility] DEPARTMENT OF LABORATORY MEDICINE Albumin 4.5 3.6 - 5.1 g/dL 03/26/2025 8:33 PM [facility] DEPARTMENT OF LABORATORY MEDICINE Total Bilirubin 0.3 <=1.2 mg/dL 03/26/20 8:33 PM [facility] DEPARTMENT OF LABORATORY MEDICINE Alkaline Phosphatase 146(H) 9 - 122 U/L 03/26/2025 8:33 PM EDT COUNT INCLUDES [facility] DEPARTMENT OF LABORATORY MEDICINE Alanine Aminotransferase (ALT) 17 10 - 35 U/L 03/26/2025 8:33 PM EDT COUNT INCLUDES [facility] DEPARTMENT OF LABORATORY MEDICINE Comment:Calcium dobesilate c an cause artificially low ALT results at therapeutic concentrations Aspartate Aminotransferase (AST) 15 10 - 35 U/L 03/26/2025 8:33 PM EDT COUNT INCLUDES [facility]PART[facility] OF LABORATORY MEDICINE Globulin 3.2 2.0 - 3.9 g/dL 03/26/2025 8:33 PM EDT COUNT INCLUDES [facility] DEPART[facility] OF LABORATORY MEDICINE A/G Ratio 1.4 1.0 - 2.2 03/26/2025 8:33 PM EDT COUNT INCLUDES [facility] DEPARTMENT OF LABORATORY MEDICINE AST/ALT Ratio 0.9 Reference Range Not Established 03/26/2025 8:33 PM EDT COUNT INCLUDES [facility] DEPARTMENT OF LABORATORY MEDICINE eGFR (Creatinine) >60 >=60 mL/min/1.73m2 03/26/2025 8:33 PM EDT COUNT INCLUDES [facility] DEPARTMENT OF LABORATORY MEDICINE Comment: [facility] utilizes CKD-EPI Creatinine 2020 to report eGFR. Values < 60 mL/min/1.73 m2 may indicate CKD if present for more than three months AND creatinine is at steady state. The eGFR provides a rough estimate of kidney function. For further guidance, please refer to the CKD: Adult Crisis Clinician Signature pathway. Creatinine Delta 03/26/20 8:33 PM EDT COUNT INCLUDES [facility] DEPARTMENT OF LABORATORY MEDICINE Comment:No previous creatini ne <5.00 mg/dL is available within the previous 12 months to calculate a delta creatinine. Blood Venipuncture / Unknown 03/26/2025 5:13 PM EDT 03/26/2025 5:13 PM EDT us Danyell Sams MD LAB BLOOD ORDERABLES Final Re sult COUNT INCLUDES [facility] DEPARTMENT OF LABORATORY MEDICINE [address] [place] [address], [facility] [phone] * (ABNORMAL) TSH w/reflex to FT4 (BH GH LMW Q YH) (03/26/2025 5:13 PM EDT) Thyroid Stimulating Hormone 5.610(H) See Comment IU/mL 03/26/2025 8:33 PM EDT COUNT INCLUDES [facility] DEPARTMENT OF LABORATORY MEDICINE Comment: Male & Non- Females: 0.270-4.200 IU/mL 1st Trimester: 0.110-3.480 IU/mL 2nd Trimester: 0.320-3.850 IU/mL As TSH is known to naturally increase in winter, with age and due to certain non-thyroidal illnesses, please consider retesting adults with mild abnormalities (ie, TSH <10 IU/mL) after 2-3 months prior to initiating therapy. Blood Venipuncture / Unknown 03/26/2025 5:13 PM EDT 03/26/2025 5:13 PM EDT us Danyell Sams MD LAB BLOOD ORDERABLES Final Re sult Performing Organization Address [facility] Co de Phone Number COUNT INCLUDES [facility] DEPARTMENT OF LABORATORY MEDICINE [address] [place] [address] * Vitamin D, 25-hydroxy (03/26/2025 5:13 PM EDT) Pathologist [facility] Vitamin D 25-Hydroxy Total 12 See Comment ng/mL 03/26/2025 8:33 PM EDT COUNT INCLUDES [facility] DEPARTMENT OF LABORATORY MEDICINE Comment: Reference Ranges: <10 ng/mL - Severe deficiency 10-19 ng/mL - Mild to moderate deficiency 20-50 ng/mL - Optimum Levels 51-80 ng/mL - Increased risk of hypercalciuria >80 ng/mL - Toxicity possible Blood Venipuncture / Unknown 03/26/2025 5:13 PM EDT 03/26/2025 5:13 PM EDT us Chava Goddard MD LAB BLOOD ORDERABLES Clarissa l Result Performing Organization Address City/[facility]/ZIP Co de Phone Number COUNT INCLUDES [facility] DEPARTMENT OF LABORATORY MEDICINE [address] [place] [address] * [place]ak[place] and COMMUNITY SERVICES COORDINATOR (CHITRA) antibodies, IgG (BH GH LMW Q YH) (03/26/2025 5:13 PM EDT) Pathologist [facility] [place] Antibody <0.8 <7.0 Andria U/mL 03/28/2025 7:33 AM EDT COUNT INCLUDES [facility] DEPARTMENT OF LABORATORY MEDICINE Comment: <7 Andria U/mL Negative 7-10 Andria U/mL Equivocal >10 Andria U/mL Positive COMMUNITY SERVICES COORDINATOR (U1RNP) Antibody <2.7 <5.0 Andria U/mL 03/28/2025 7:33 AM EDT COUNT INCLUDES [facility] DEPARTMENT OF LABORATORY MEDICINE Comment: <5 Andria U/mL Negative 5-10 Andria U/mL Equivocal >10 Andria U/mL Positive Blood Venipuncture / Unknown 03/26/2025 5:13 PM EDT 03/26/2025 5:13 PM EDT Chava Goddard MD LAB BLOOD ORDERABLES Clarissa l Result Performing Organization Address City/[facility] Co de Phone Number COUNT INCLUDES [facility] DEPARTMENT OF LABORATORY MEDICINE [address] [place] [address] * Myeloperoxidase antibody (03/26/2025 5:13 PM EDT) [facility] Myeloperoxidase Ab <0.3 <3.5 Andria U/mL 03/28/2025 7:33 AM EDT COUNT INCLUDES THE [facility] DEPART[facility] OF LABORATORY MEDICINE Comment: <3.5 Andria U/mL Negative 3.5-5 Andria U/mL Equivocal >5.0 Andria U/mL Positive Blood Venipuncture / Unknown 03/26/2025 5:13 PM EDT 03/26/2025 5:13 PM EDT Chava Goddard MD LAB BLOOD ORDERABLES Clarissa l Result COUNT INCLUDES [facility] DEPART[facility] OF LABORATORY MEDICINE [address] [place] [address] * (ABNORMAL) CBC auto differential (03/26/2025 5:13 PM EDT) [facility] WBC 6.7 4.0 - 11.0 x1000/ L 03/26/2025 8:02 PM [facility] DEPARTMENT OF LABORATORY MEDICINE RBC 4.70 4.00 - 6.00 M/ L 03/26/2025 8:02 PM [facility] DEPARTMENT OF LABORATORY MEDICINE Hemoglobin 14.7 11.7 - 15.5 g/dL 03/26/2025 8:02 PM [facility] DEPARTMENT OF LABORATORY MEDICINE Hematocrit 43.70 35.00 - 45.00 % 03/26/2025 8:02 PM [facility] DEPARTMENT OF LABORATORY MEDICINE MCV 93.0 80.0 - 100.0 fL 03/26/2025 8:02 PM [facility] DEPARTMENT OF LABORATORY MEDICINE MCH 31.3 27.0 - 33.0 pg 03/26/2025 8:02 PM [facility] DEPARTMENT OF LABORATORY MEDICINE MCHC 33.6 31.0 - 36.0 g/dL 03/26/2025 8:02 PM [facility] DEPARTMENT OF LABORATORY MEDICINE RDW-CV 13.2 11.0 - 15.0 % 03/26/2025 8:02 PM [facility] DEPARTMENT OF LABORATORY MEDICINE Platelets 394 150 - 420 x1000/ L 03/26/2025 8:02 PM [facility] DEPARTMENT OF LABORATORY MEDICINE MPV 9.7 8.0 - 12.0 fL 03/26/2025 8:02 PM [facility] DEPARTMENT OF LABORATORY MEDICINE Neutrophils 70.4 39.0 - 72.0 % 03/26/2025 8:02 PM [facility] DEPARTMENT OF LABORATORY MEDICINE Lymphocytes 15.2(L) 17.0 - 50.0 % 03/26/2025 8:02 PM [facility] DEPARTMENT OF LABORATORY MEDICINE Monocytes 12.5(H) 4.0 - 12.0 % 03/26/2025 8:02 PM [facility] DEPARTMENT OF LABORATORY MEDICINE Eosinophils 0.9 0.0 - 5.0 % 03/26/2025 8:02 PM [facility] DEPARTMENT OF LABORATORY MEDICINE Basophil 0.8 0.0 - 1.4 % 03/26/2025 8:02 PM [facility] DEPARTMENT OF LABORATORY MEDICINE Immature Granulocytes 0.2 0.0 - 1.0 % 03/26/2025 8:02 PM EDT COUNT INCLUDES THE [facility] DEPARTMENT OF LABORATORY MEDICINE nRBC 0.0 0.0 - 1.0 % 03/26/2025 8:02 PM EDT COUNT INCLUDES THE [facility] DEPARTMENT OF LABORATORY MEDICINE Absolute Lymphocyte Count 1.01 0.60 - 3.70 x 1000/ L 03/26/2025 8:02 PM EDT COUNT INCLUDES THE [facility] DEPARTMENT OF LABORATORY MEDICINE Monocyte Absolute Count 0.83 0.00 - 1.00 x 1000/ L 03/26/2025 8:02 PM EDT COUNT INCLUDES THE [facility] DEPARTMENT OF LABORATORY MEDICINE Eosinophil Absolute Count 0.06 0.00 - 1.00 x 1000/ L 03/26/2025 8:02 PM EDT COUNT INCLUDES [facility] DEPARTMENT OF LABORATORY MEDICINE Basophil Absolute Count 0.05 0.00 - 1.00 x 1000/ L 03/26/2025 8:02 PM EDT COUNT INCLUDES [facility] DEPARTMENT OF LABORATORY MEDICINE Absolute Immature Granulocyte Count 0.01 0.00 - 0.30 x 1000/ L 03/26/2025 8:02 PM EDT COUNT INCLUDES THE [facility] DEPARTMENT OF LABORATORY MEDICINE Absolute nRBC 0.00 0.00 - 1.00 x 1000/ L 03/26/2025 8:02 PM EDT COUNT INCLUDES THE [facility] DEPARTMENT OF LABORATORY MEDICINE ANC (Abs Neutrophil Count) 4.69 2.00 - 7.60 x 1000/ L 03/26/2025 8:02 PM EDT COUNT INCLUDES THE [facility] DEPARTMENT OF LABORATORY MEDICINE Blood Venipuncture / Unknown 03/26/2025 5:13 PM EDT 03/26/2025 5:13 PM EDT Danyell Sams MD LAB BLOOD ORDERABLES Final Re sult COUNT INCLUDES THE [facility] DEPARTMENT OF LABORATORY MEDICINE [address] [place] [address] * Hepatitis C Ab with reflex to HCV PCR (03/26/2025 5:13 PM EDT) Hepatitis C Antibody Negative Negative 03/26/2025 10:39 PM EDT COUNT INCLUDES THE [facility] DEPARTMENT OF LABORATORY MEDICINE Comment:A negative result do es not exclude HCV infection, since antibodies are not detectable for 4-8 weeks after initial infection, or may not develop in compromised hosts. In high-risk individuals, repeat antibody testing in 2 months and/or HCV RNA PCR should be considered. Blood Venipuncture / Unknown 03/26/2025 5:13 PM EDT 03/26/2025 5:13 PM EDT Chava Goddard MD LAB BLOOD ORDERABLES Clarissa l Result Performing Organization Address [facility] Co de Phone Number COUNT INCLUDES THE [facility] DEPARTMENT OF LABORATORY MEDICINE [address] [place] [address] * DNA antibody, double-stranded (03/26/2025 5:13 PM EDT) Pathologist [facility] dsDNA Ab, IgG 5.9 <10.0 IU/mL 03/28/2025 7:33 AM EDT COUNT INCLUDES THE [facility] DEPARTMENT OF LABORATORY MEDICINE Comment: <10 IU/mL Negative 10-15 IU/mL Equivocal >15 IU/mL Positive Blood Venipuncture / Unknown 03/26/2025 5:13 PM EDT 03/26/2025 5:13 PM EDT Chava Goddard MD LAB BLOOD ORDERABLES Clarissa l Result Performing Organization Address [facility] de Phone Number COUNT INCLUDES THE [facility] DEPARTMENT OF LABORATORY MEDICINE [address] [place] [address] * (ABNORMAL) Vitamin D 25 (vitamin D status)([facility])(YH) (03/26/2025 5:13 PM EDT) Vit D, 25-Hydroxy 7(L) 20 - 50 ng/mL 03/27/2025 1:35 PM EDT [facility] Comment: A serum 25(OH) vitamin D concentration of at least 20 ng/mL is necessary to prevent secondary hyperparathyroidism. For reducing fracture risk or optimizing skeletal muscle function, higher serum 25(OH) vitamin D values, in the range of 30 ng/mL, are thought to be optimal. Blood Venipuncture / Unknown 03/26/2025 5:13 PM EDT 03/26/2025 5:13 PM EDT Danyell Sams MD LAB BLOOD ORDERABLES Final Re sult [facility] * Hepatitis B surface antigen ( AKIRA Menendez ) (03/26/2025 5:13 PM EDT) Hepatitis B Surface Antigen Negative Negative 03/26/2025 10:38 PM EDT COUNT INCLUDES THE [facility] DEPARTMENT OF LABORATORY MEDICINE Blood Venipuncture / Unknown 03/26/2025 5:13 PM EDT 03/26/2025 5:13 PM EDT Chava Goddard MD LAB BLOOD ORDERABLES Clarissa l Result Performing Organization Address City/[facility] Co de Phone Number COUNT INCLUDES [facility] DEPARTMENT OF LABORATORY MEDICINE [address] [place] [address] * C3 complement (03/26/2025 5:13 PM EDT) C3 Complement 148 90 - 180 mg/dL 03/26/2025 8:33 PM EDT COUNT INCLUDES THE [facility] DEPARTMENT OF LABORATORY MEDICINE Blood Venipuncture / Unknown 03/26/2025 5:13 PM EDT 03/26/2025 5:13 PM EDT Chava Goddard MD LAB BLOOD ORDERABLES Clarissa l Result Performing Organization Address City/[facility]/ZIP Co de Phone Number COUNT INCLUDES [facility] DEPARTMENT OF LABORATORY MEDICINE [address] [place] [address] * C4 complement ( AKIRA Menendez ) (03/26/2025 5:13 PM EDT) C4 Complement 22 10 - 40 mg/dL 03/26/2025 8:33 PM EDT COUNT INCLUDES THE [facility] DEPARTMENT OF LABORATORY MEDICINE Blood Venipuncture / Unknown 03/26/2025 5:13 PM EDT 03/26/2025 5:13 PM EDT Chava Goddard MD LAB BLOOD ORDERABLES Clarissa l Result Performing Organization Address [facility]/ZIP Co de Phone Number COUNT INCLUDES [facility] DEPARTMENT OF LABORATORY MEDICINE [address] [place] [address] * (ABNORMAL) C-reactive protein (CRP) (03/26/2025 5:13 PM EDT) CRP, High Sensitivity 7.6(H) See comment mg/L 03/26/2025 8:33 PM EDT COUNT INCLUDES THE [facility] DEPARTMENT OF LABORATORY MEDICINE Comment: hs-CRP Risk According to AHA/CDC Guidelines (mg/L): <1.0 Lower relative cardiovascular risk. 1.0-3.0 Average relative cardiovascular risk. 3.1-10.0 Higher relative cardiovascular risk. Consider retesting in 1 to 2 weeks to exclude a benign transient elevation in the baseline CRP value secondary to infection or inflammation. >10.0 Persistent elevation, upon retesting, may be associated with infection and inflammation. Blood Venipuncture / Unknown 03/26/2025 5:13 PM EDT 03/26/2025 5:13 PM EDT Chava Goddard MD LAB BLOOD ORDERABLES Clarissa l Result Performing Organization Address [facility] Co de Phone Number COUNT INCLUDES [facility] DEPARTMENT OF LABORATORY MEDICINE [address] [place] [address] * T4, free (03/26/2025 5:13 PM EDT) Free T4 0.88 See Comment ng/dL 03/26/2025 9:03 PM EDT COUNT INCLUDES THE [facility] DEPARTMENT OF LABORATORY MEDICINE Comment: For patients taking levothyroxine, the daily therapeutic dose may cause some patients to have slightly higher FT4 than in the general population and TSH should be the main arbiter of dosing adequacy for those whose hypothyroidism is of primary origin (ie. not related to hypothalamic-pituitary disease.) Of 26 commonly used pharmaceuticals tested in vitro, only furosemide caused elevated free thyroxine (FT4) findings at the daily therapeutic dosage level. Male & Non- Females: 0.80-1.70 ng/dL 1st Trimester: 0.90-1.40 ng/dL 2nd Trimester: 0.70-1.30 ng/dL Blood Venipuncture / Unknown 03/26/2025 5:13 PM EDT 03/26/2025 5:13 PM EDT Danyell Sams MD LAB BLOOD ORDERABLES Final Re sult Performing Organization Address [facility] Co de Phone Number COUNT INCLUDES [facility] DEPARTMENT OF LABORATORY MEDICINE [address] [place] [id number] [phone] * Hemoglobin A1c (03/26/2025 5:13 PM EDT) [facility] Hemoglobin A1c 5.1 4.0 - 5.6 % % 03/27/2025 2:32 PM EDT COUNT INCLUDES THE [facility] DEPARTMENT OF LABORATORY MEDICINE Comment: Hemoglobin A1c values of 5.7-6.4 % identify individuals with an increased risk for future diabetes and to whom the term pre-diabetes may be applied. Hemoglobin A1c values greater than 6.4% on more than one occasion are diagnostic of diabetes. Lowering HbA1c to below 7% is considered to reduce microvascular and neuropathic complications of diabetes. A s of 03/07/2025, this test is now being performed by Capillary Electrophoresis ([facility]). There is no change in reference range. Results from the prior method are comparable. Estimated Average Glucose mg/dL 100 mg/dL 03/27/2025 2:32 PM EDT COUNT INCLUDES THE [facility] DEPARTMENT OF LABORATORY MEDICINE Comment:Estimated average gl ucose (eAG) is a calculated value designed to estimate the expected average blood glucose level throughout the day from a single measurement of glycated hemoglobin A1C (HbA1c) and follows the calculation proposed by the [place] [employer] (Diabetes Care 31: 1-6, 2008). It may have less accuracy in children, women and patients with certain erythrocyte disorders. Blood Venipuncture / Unknown 03/26/2025 5:13 PM EDT 03/26/2025 5:13 PM EDT Danyell Sams MD LAB BLOOD ORDERABLES Final Re sult Performing Organization Address [facility] Co de Phone Number COUNT INCLUDES [facility] DEPARTMENT OF LABORATORY MEDICINE [address] [place] [address] * (ABNORMAL) Lipid panel (03/26/2025 5:13 PM EDT) [facility] Cholesterol 186 See Comment mg/dL 03/26/2025 8:33 PM EDT COUNT INCLUDES THE [facility] DEPARTMENT OF LABORATORY MEDICINE Comment: Total Cholesterol (mg/dL) Adults (>18 years) Children (<18 years) Desirable <200 <170 Borderline-High 200-239 170-199 High >=240 >=200 HDL 62 >=40 mg/dL 03/26/2025 8:[facility] Triglycerides 70 See Comment mg/dL 03/26/2025 8:33 PM EDT COUNT INCLUDES THE [facility] DEPARTMENT OF LABORATORY MEDICINE Comment: Triglycerides (mg/dL) Adults (>18 years) Children (<18 years) Desirable <150 Not Established Borderline-High 150-199 Not Established High 200-499 Not Established Chol/HDL Ratio 3.0 0.0 - 5.0 03/26/2025 8:33 PM [facility] LDL Calculated 111(H) See Comment mg/dL 03/26/2025 8:33 PM [facility] DEPARTMENT OF LABORATORY MEDICINE Comment: Effective 03/04/2022, LDL is calculated using the Curran-WILL equation, which is more accurate than the Friedewald and Noam-Gage equations. LDL Cholesterol (mg/dL) Adults (>18 years) Children (<18 years) Desirable <100 <110 Above Desirable 100-129 Not Established Borderline-High 130-159 110-129 High 160-189 >=130 Very High >=190 Not Established Blood Venipuncture / Unknown 03/26/2025 5:13 PM EDT 03/26/2025 5:13 PM EDT Danyell Sams MD LAB BLOOD ORDERABLES Final Re sult Performing Organization Address [facility] Co de Phone Number COUNT INCLUDES [facility] DEPARTMENT OF LABORATORY MEDICINE [address] [place] [address] * (ABNORMAL) Urine microscopic ([facility]) (03/26/2025 5:01 PM EDT) Only the most recent of2 resultswithin the time period is included. RBC/HPF, UA 51(H) 0 - 2 /HPF 03/26/2025 8:12 PM EDT COUNT INCLUDES THE [facility] DEPARTMENT OF LABORATORY MEDICINE WBC/HPF, UA 99(H) 0 - 5 /HPF 03/26/2025 8:12 PM EDT COUNT INCLUDES THE [facility] DEPARTMENT OF LABORATORY MEDICINE Bacteria, UA Rare None-Rare /HPF 03/26/2025 8:12 PM EDT COUNT INCLUDES THE [facility] DEPARTMENT OF LABORATORY MEDICINE Urine Squamous Epithelial Cells, UA 8(H) 0 - 5 /HPF 03/26/2025 8:12 PM EDT COUNT INCLUDES THE [facility] DEPARTMENT OF LABORATORY MEDICINE Urine Collection / Unknown 03/26/2025 5:01 PM EDT 03/26/2025 5:01 PM EDT us Chava Goddard MD URINE ORDERABLES Final Re sult Performing Organization Address [facility]/ZIP Co de Phone Number COUNT INCLUDES [facility] DEPARTMENT OF LABORATORY MEDICINE [address] [place] [address] * (ABNORMAL) Urinalysis-macroscopic w/reflex microscopic (03/26/2025 5:01 PM EDT) Only the most recent of2 resultswithin the time period is included. Clarity, UA Cloudy(A) Clear 03/26/2025 8:06 PM EDT COUNT INCLUDES THE [facility] DEPARTMENT OF LABORATORY MEDICINE Color, UA Yellow Yellow, Colorless 03/26/2025 8:06 PM EDT COUNT INCLUDES THE [facility] DEPARTMENT OF LABORATORY MEDICINE Specific [place], UA 1.027 1.005 - 1.030 03/26/2025 8:06 PM EDT COUNT INCLUDES THE [facility] DEPARTMENT OF LABORATORY MEDICINE pH, UA 5.5 5.5 - 7.5 03/26/2025 8:06 PM EDT COUNT INCLUDES THE [facility] DEPARTMENT OF LABORATORY MEDICINE Protein, UA 1+(A) Negative, Trace 03/26/2025 8:06 PM EDT COUNT INCLUDES THE [facility] DEPARTMENT OF LABORATORY MEDICINE Glucose, UA Negative Negative 03/26/2025 8:06 PM EDT COUNT INCLUDES THE [facility] DEPARTMENT OF LABORATORY MEDICINE Ketones, UA 1+(A) Negative 03/26/2025 8:06 PM EDT COUNT INCLUDES THE [facility] DEPARTMENT OF LABORATORY MEDICINE Blood, UA 2+(A) Negative 03/26/2025 8:06 PM EDT COUNT INCLUDES [facility] DEPARTMENT OF LABORATORY MEDICINE Bilirubin, UA Negative Negative 03/26/2025 8:06 PM EDT COUNT INCLUDES THE [facility] DEPARTMENT OF LABORATORY MEDICINE Leukocytes, UA 4+(A) Negative 03/26/2025 8:06 PM EDT COUNT INCLUDES THE [facility] DEPARTMENT OF LABORATORY MEDICINE Nitrite, UA Negative Negative 03/26/2025 8:06 PM EDT COUNT INCLUDES THE [facility] DEPARTMENT OF LABORATORY MEDICINE Urobilinogen, UA <2.0 <=2.0 mg/dL 03/26/2025 8:06 PM EDT COUNT INCLUDES [facility] DEPARTMENT OF LABORATORY MEDICINE Urine Collection / Unknown 03/26/2025 5:01 PM EDT 03/26/2025 5:01 PM EDT us Chava Nurys Goddard MD URINE ORDERABLES Final Re sult COUNT INCLUDES [facility] DEPARTMENT OF LABORATORY MEDICINE [address] [place] [address], [facility] [phone] * (ABNORMAL) Protein, total w/creatinine, urine, random ([facility]) (03/26/2025 5:01 PM EDT) Protein/Creat inine Ratio, Urine, Random 0.33(H) <0.10 mg/mg Cr 03/26/2025 8:26 PM EDT COUNT INCLUDES THE [facility] DEPARTMENT OF LABORATORY MEDICINE Protein Urine Random 1.03 Reference Range Not Established g/L 03/26/2025 8:26 PM EDT COUNT INCLUDES [facility] DEPARTMENT OF LABORATORY MEDICINE Creatinine, Urine, Random 311 Reference Range Not Established mg/dL 03/26/2025 8:26 PM EDT COUNT INCLUDES [facility] DEPARTMENT OF LABORATORY MEDICINE Urine Collection / Unknown 03/26/2025 5:01 PM EDT 03/26/2025 5:01 PM EDT Chava Goddard MD URINE ORDERABLES Final Re sult Performing Organization Address City/[facility]/ZIP Co de Phone Number COUNT INCLUDES [facility] DEPARTMENT OF LABORATORY MEDICINE [address] [place] [address] * Cryoglobulin (01/22/2025 9:38 AM EDT) Pathologist [facility] Cryoglobulin Negative Negative 01/29/2025 3:56 PM EDT COUNT INCLUDES [facility] DEPARTMENT OF LABORATORY MEDICINE Blood Venipuncture / Unknown 01/22/2025 9:38 AM EDT 01/22/2025 9:54 AM EDT Chava Goddard MD LAB BLOOD ORDERABLES Clarissa l Result COUNT INCLUDES [facility] DEPARTMENT OF LABORATORY MEDICINE [address] [place] [address] from Last 3 Months Insurance [address] [place], [place] [id number] CIG[employer] on file CIG on file CIG[employer] on file Care Teams [employer] Relationship Specialty Start Date End Date Danyell Sams MD [address] [place] [id number] PCP - General Internal Medicine 08/18/24
[2025-03-29 13:59] VITALS: BP 122/72; PULSE 113; O2SAT 98; BMI 38.1
--- NOTE | 2025-03-29 13:59 | A.OFFVIS_ITS ---
Vital Signs 03/29/25 13:59 Height 5 ft 3 in Weight 215 lb 2.738 oz BMI 38.1 BP 122/72 Blood Pressure Location Lt brachial Position Sitting Pulse 113 H Pulse Oximetry (%) 98 Oxygen Delivery Method Room Air Intake Visit Reasons: follow up Intake Note: Patient presents for follow up on lupus today. Allergies walnut Allergy (Mild, Verified 03/29/25 14:02) itchy mouth and throat HPI HPI follow up: Details: After prednisone course she has had improvement in diffuse purpuric rash. She had open sores on her lateral right ankle, which are healing but erythema still present. She had a visit with Dermatology while on prednisone. No skin biopsy was performed. She has reduced her activities. She used to work out at the gym daily for an hour and a half. She works out at the gym about 30 minutes 4-5 days a week. She was preparing for a dance performance and practicing 4 hours daily. She is no longer participating in dance practices. She has not had recurrence of purpura. She denies fevers, dyspnea, pleurisy, oral ulcers, frothy urine, urinary frequency, dysuria, hematuria, joint pain or joint swelling. She has dry mouth but it is tolerable. [facility] Medical History Hypertension Hidradenitis suppurativa Psoriasis Asthma Raynauds syndrome Lupus (systemic lupus erythematosus) Cyst on ear Hypertrophy, nasal, turbinate Deviated septum Surgical History [place] teeth removed Family History Father High blood cholesterol Hypertension Social History Alcohol intake: current Alcohol intake frequency: a few times a month Patient Tobacco Use Status: Never used Tobacco Physical Exam Vital Signs: Last Vital Signs Pulse 113 H 03/29/25 13:59 BP 122/72 03/29/25 13:59 Pulse Ox 98 03/29/25 13:59 Oxygen Delivery Method Room Air 03/29/25 13:59 BMI result Body Mass Index 38.1 Const Other: General: Comfortable CVS: RRR Oral: No oral ulcerations Respiratory: clear to auscultation bilaterally. Good respiratory effort Skin: No purpura present. She has in erythematous circular lesion right lateral ankle greater than coin size. MSK: No tender joints. No synovitis. Normal range of motion of upper extremities and lower extremities Assessment & Plan Assessment & Plan (1) Lupus (systemic lupus erythematosus): Comment: She had a recent episode of left ankle joint pain and swelling with subsequent development of palpable purpura involving trunk and lower extremities. Left ankle joint pain and swelling resolved with Medrol Dosepak. Empiric prednisone course improved the rash but she continues to have an erythematous circular lesion on her lateral right ankle, which was ulcerated. Laboratory workup 01/05/2025 revealed elevated inflammatory markers (ESR 72 mm/hr and CRP 19.3 milligrams/liter), leukopenia 3.4, mild proteinuria (505 mg/g creat), hematuria, pyuria, hyaline casts, indeterminate double-stranded DNA and positive lupus anticoagulant. Repeat testing 01/18/2025 while on prednisone revealed persistent elevation in inflammatory markers with ESR 119 mm/hr and CRP 13.8 milligrams/liter, resolution of leukocytosis, and new thrombocytosis. Off prednisone 03/26/2025 persistent proteinuria (0.33 mg/mg creat), hematuria and pyuria, dsDNA 5 and normal CBC. She has not had any urinary symptoms. Hepatitis-B and C panel, ANCA, Sm/[employer], cardiolipin antibodies are negative. Differential diagnosis for her rash includes leukocytoclastic vasculitis, which can be associated with systemic lupus erythematosus and induced by exercise, cutaneous thrombotic process associated with antiphospholipid syndrome (+LA) and infection (UTI). Her UA is suggestive of nephritis. Proteinuria can be an indication of renal disease associated with either SLE, vasculitis or APS, which complicates her picture. Creatinine has remained normal. When she was on prednisone course she had elevated blood pressure as an adverse reaction. She is normotensive this visit off of prednisone. Rheumatology history: Diagnosed in 2019 based on positive PERLA 1:320, repeat 1:80, low C4, indeterminate double-stranded DNA, leukopenia, Raynaud's syndrome, hair loss, malar rash, pleurisy and polyarthralgias. Hydroxychloroquine started 09/2019. Methotrexate 12/2020 to 02/2021 cause nausea vomiting abdominal pain, leflunomide 04/2021 caused diarrhea. Subcutaneous Benlysta started 01/15/2024. In the past when she was on hydroxychloroquine 400 mg daily she was experiencing uncontrolled IBS and subsequently hydroxychloroquine 200 mg daily was better tolerated. Code(s): M32.9 - Systemic lupus erythematosus, unspecified Category: Medical Qualifiers: Systemic lupus erythematosus organ involvement: unspecified Systemic lupus erythematosus type: unspecified Qualified Code(s): M32.9 - Systemic lupus erythematosus, unspecified Plan: I am requesting that she follow-up with child care cook at [facility] for skin biopsy of right lateral ankle lesion to aid in diagnosis and further management of immune suppressive therapy targeting the disease process Urine culture. If urine culture does not reveal UTI, I will refer her to Nephrology for evaluation of possible early nephritis associated with connective tissue disease and consideration of kidney biopsy if she continues to have persistent proteinuria She will increase hydroxychloroquine 400 mg daily to optimize her dose based on her weight. OCT and visual field 03/2024 wnl. She has an eye exam appointment scheduled for April 2025 for hydroxychloroquine surveillance. Continue Benlysta subcutaneous injection weekly Inflammatory markers ordered. APS panel to be repeated next month. Lab requisitions given to patient per insurance requirements as labs have to be done at [facility]. Requesting lab results of cryoglobulin (which patient reports is normal) and beta 2 glycoprotein antibody from [facility] Return to clinic in three-month (2) Rash: Code(s): R21 - Rash and other nonspecific skin eruption Category: Medical Plan: See above (3) Other termite treater helper (current) drug therapy: Code(s): Z79.899 - Other retirement (current) drug therapy Category: Medical Plan: See above (4) Vitamin D deficiency: Code(s): E55.9 - Vitamin D deficiency, unspecified Category: Medical Plan: Start ergocalciferol 46116 IU weekly for 12 weeks total Return to clinic in 3 months (5) Pyuria: Code(s): R82.81 - Pyuria Category: Medical Plan: Urine culture ordered to rule out UTI in an immunocompromised patient who is asymptomatic Orders: Orders Erythrocyte Sedimentation Rate Today Z79.899 - Other retirement (current) drug therapy Lupus Anticoagulant Panel 1 Month M32.9 - Systemic lupus erythematosus, unspecified, R21 - Rash and other nonspecific skin eruption, R76.0 - Raised antibody titer C Reactive Protein Today Z79.899 - Other termite treater helper (current) drug therapy Beta-2 Glycoprotein Antibody 1 Month M32.9 - Systemic lupus erythematosus, unspecified, R21 - Rash and other nonspecific skin eruption, R76.0 - Raised antibody titer Cardiolipin Antibodies 1 Month M32.9 - Systemic lupus erythematosus, unspecified, R21 - Rash and other nonspecific skin eruption, R76.0 - Raised antibody titer Urine Culture Today R82.81 - Pyuria Medications: New ergocalciferol (vitamin D2) 1,250 mcg PO QWEEK 12 caps 0RF Changed From hydroxychloroquine 200 mg PO DAILY 30 tabs 2RF To hydroxychloroquine 400 mg (2 x 200 mg) PO DAILY 180 tabs 1RF 90 days Refilled belimumab (Benlysta) inject into upper thigh or abdomen; rotate sites Continuity of treatment 200 mg subcut QWEEK 4 mL 2RF Coding Level of Care Code Est Pt Level 5 (50860) Diagnoses Systemic lupus erythematosus, unspecified SLE type, unspecified organ involvement status M32.9 Systemic lupus erythematosus organ involvement: unspecified Systemic lupus erythematosus type: unspecified Rash R21 Other termite treater helper (current) drug therapy Z79.899 Vitamin D deficiency E55.9 Pyuria R82.81 Time Spent (min) 40
== END 2025-03-29 14:48 | disposition home or self-care (01) ==
LOC: HO.RHES 13:51
PROVIDERS: PCP Internal Medicine Rheumatology; Visit Provider Internal Medicine Rheumatology
DX: M32.9 Systemic lupus erythematosus, unspecified (principal); R21 Rash and other nonspecific skin eruption; E55.9 Vitamin D deficiency, unspecified; R82.81 Pyuria; Z79.899 Other long term (current) drug therapy
CPT/HCPCS: 99215

== ENCOUNTER 2025-07-03 09:39 | Outpatient (AMB) | payer OTHER, SELFPAY ==
--- NOTE | 2025-07-03 09:41 | A.OFFVIS_ITS ---
Vital Signs 07/03/25 09:48 Height 5 ft 3 in Weight 217 lb 13.067 oz BMI 38.6 BP 150/100 H Blood Pressure Location Lt brachial Position Sitting Pulse 105 H Pulse Source Pulse Oximeter Pulse Oximetry (%) 99 Oxygen Delivery Method Room Air Intake Visit Reasons: 3 Months Intake Note: Patient presents for follow up on lupus today. Accompanied by: Self / Same As Patient Allergies walnut Allergy (Mild, Verified 07/03/25 09:48) itchy mouth and throat HPI HPI 3 Months: Details: Intermittent joint pain. MS 15 minutes. Joint pain resolves with shower in 15 minute.s No fevers, dyspnea, pleurisy, raynaud's syndrome, rash, urinary symptoms, joint swelling. She feels well. She works from home. She has a new puppy who is 4-month-old. [facility] Medical History Hypertension Hidradenitis suppurativa Psoriasis Asthma Raynauds syndrome Lupus (systemic lupus erythematosus) Cyst on ear Hypertrophy, nasal, turbinate Deviated septum Surgical History [place] teeth removed Family History Father High blood cholesterol Hypertension Social History Alcohol intake: current Alcohol intake frequency: a few times a month Patient Tobacco Use Status: Never used Tobacco Physical Exam Vital Signs: Last Vital Signs Pulse 105 H 07/03/25 09:48 BP 150/100 H 07/03/25 09:48 Pulse Ox 99 07/03/25 09:48 Oxygen Delivery Method Room Air 07/03/25 09:48 BMI result Body Mass Index 38.6 Const Other: General: Comfortable CVS: RRR Oral: No oral ulcerations Respiratory: clear to auscultation bilaterally. Good respiratory effort Skin: No purpura present. Hyperpigmented circular lesions on her legs (1 on her right calf from an old mosquito bite and 3 on her left calf) MSK: No tender joints. No synovitis. Normal range of motion of upper extremities and lower extremities Assessment & Plan Assessment & Plan (1) Lupus (systemic lupus erythematosus): Comment: She had an episode of left ankle joint pain and swelling with subsequent development of palpable purpura involving trunk and lower extremities that progressed to have an erythematous circular ulcer on her right ankle resolved with empiric treatment with prednisone for lupus flare with presumed LCV. Her flare has resolved. Clinically she feels well. She eventually had a skin biopsy, which was unremarkable. ESR remains elevated with most recent testing from June 30. UA continues to suggest UTI although patient is asymptomatic. She had urine culture with results pending. UTI could have exacerbated SLE and caused LCV rash. Since she had a positive lupus anticoagulant positive test in December, she had repeat APS panel most recently with results pending. Rheumatology history: Diagnosed in 2019 based on positive PERLA 1:320, repeat 1:80, low C4, indeterminate double-stranded DNA, leukopenia, Raynaud's syndrome, hair loss, malar rash, pleurisy and polyarthralgias. Hydroxychloroquine started 09/2019. Methotrexate 12/2020 to 02/2021 cause nausea vomiting abdominal pain, leflunomide 04/2021 caused diarrhea. Subcutaneous Benlysta started 01/15/2024. In the past when she was on hydroxychloroquine 400 mg daily she was experiencing uncontrolled IBS and subsequently hydroxychloroquine 200 mg daily was better tolerated. Code(s): M32.9 - Systemic lupus erythematosus, unspecified Category: Medical Qualifiers: Systemic lupus erythematosus type: unspecified Systemic lupus erythematosus organ involvement: unspecified Qualified Code(s): M32.9 - Systemic lupus erythematosus, unspecified Plan: Requesting lab results in urine culture results from [facility] [employer] labs Continue hydroxychloroquine 400 mg daily. OCT and visual field 03/2024 wnl. She recently had an appointment for hydroxychloroquine surveillance. It will take 1-2 weeks for report to be sent to my office per patient's conversation with the practice. Continue Benlysta subcutaneous injection weekly Return to clinic in three-month (2) Rash: Code(s): R21 - Rash and other nonspecific skin eruption Category: Medical Plan: See above (3) Other exterminator (current) drug therapy: Code(s): Z79.899 - Other exterminator (current) drug therapy Category: Medical Plan: See above (4) Vitamin D deficiency: Comment: She completed supplement 12 week supply of ergocalciferol 42822 IU weekly Code(s): E55.9 - Vitamin D deficiency, unspecified Category: Medical Plan: Requesting lab results from June 30 lab draw at [facility] Return to clinic in 3 months (5) Pyuria: Code(s): R82.81 - Pyuria Category: Medical Plan: Urine culture ordered to rule out UTI in an immunocompromised patient who is asymptomatic Coding Level of Care Code Est Pt Level 4 (00754) Complex EM visit Add On G2211 Diagnoses Systemic lupus erythematosus, unspecified SLE type, unspecified organ involvement status M32.9 Systemic lupus erythematosus type: unspecified Systemic lupus erythematosus organ involvement: unspecified Rash R21 Other exterminator (current) drug therapy Z79.899 Vitamin D deficiency E55.9 Pyuria R82.81
[2025-07-03 09:48] VITALS: BP 150/100; PULSE 105; O2SAT 99; BMI 38.6
--- OUTSIDE RECORDS SUMMARY | 2025-07-03 11:01 | XMS_ITS | Encounter Summary ---
Author Organization [facility] Address [address] [place] [address] Care Team Providers Care Textile Engineer Name Role Phone Danyell Sams MD Primary Care Provider [phone] Encounter Details Date Type Department Care Team (Latest Contact Info) Description 02/16/2025 Transcribed Orders [facility] [address] [place], [place] [address] Chava Goddard MD [address] [place] [address] [phone] Systemic lupus erythematosus, unspecified (HC Code) (Primary Dx); Encounter for long-term (current) drug use; Systemic lupus erythematosus (HC Code) Social History Tobacco Use Types Packs/Day Years Used Date Smoking Tobacco: Never Smokeless Tobacco: Never Alcohol Use Standard Drinks/Week Comments Yes 0 [...] as of this encounter Plan of Treatment Scheduled Orders Name Type Priority Associated Diagnoses Orde r Schedule DNA antibody, double-stranded Lab Routine Systemic lupus erythematosus, unspecified (HC Code) Encounter for long-term (current) drug use Systemic lupus erythematosus (HC Code) Expected: 03/15/2025, Expires: 05/15/2026 Cryoglobulin Lab Routine Systemic lupus erythematosus, unspecified (HC Code) Encounter for long-term (current) drug use Systemic lupus erythematosus (HC Code) Expected: 03/15/2025, Expires: 05/15/2026 Lupus anticoagulant ([facility]) Lab Routine Systemic lupus erythematosus, unspecified (HC Code) Encounter for long-term (current) drug use Systemic lupus erythematosus (HC Code) Expected: 03/15/2025, Expires: 05/15/2026 Protein, total w/creatinine, urine, random ([facility]) Lab Routine Systemic lupus erythematosus, unspecified (HC Code) Encounter for long-term (current) drug use Systemic lupus erythematosus (HC Code) Expected: 03/15/2025, Expires: 05/15/2026 documented as of this encounter Goals Goal Patient Goal Type Associated Problems Recent Progress Patient-Stated? Author RxSp Therapeutic Goal General Not started(01/06 12:10 PM EDT) No Margarita Wu, Yesica Note: Lupus: Prevent increased number of flares. Good symptom control MTPs must be opened for patients not making appropriate progress towards their established therapeutic goals. Patient's progress towards goal: documented as of this encounter Results * DNA antibody, double-stranded (03/26/2025 5:13 PM EDT) dsDNA Ab, IgG 5.9 <10.0 IU/mL 03/28/2025 7:33 AM EDT [facility] Comment: <10 IU/mL Negative 10-15 IU/mL Equivocal >15 IU/mL Positive Blood Venipuncture / Unknown 03/26/2025 5:13 PM EDT 03/26/2025 5:13 PM EDT us Chava Goddard MD LAB BLOOD ORDERABLES Clarissa olivera Result [facility] [address] [place] [address], [facility] [phone] * Vitamin D, 25-hydroxy (03/26/2025 5:13 PM EDT) Vitamin D 25-Hydroxy Total 12 See Comment ng/mL 03/26/2025 8:33 PM EDT [facility] Comment: Reference Ranges: <10 ng/mL - Severe deficiency 10-19 ng/mL - Mild to moderate deficiency 20-50 ng/mL - Optimum Levels 51-80 ng/mL - Increased risk of hypercalciuria >80 ng/mL - Toxicity possible Blood Venipuncture / Unknown 03/26/2025 5:13 PM EDT 03/26/2025 5:13 PM EDT Chava Goddard MD LAB BLOOD ORDERABLES Clarissa l Result Performing Organization Address City/[facility]/ZIP Co de Phone Number [facility] [address] [place] [address] * Blakely and RN POST PARTUM (CHITRA) antibodies, IgG ([facility] LMW Q YH) (03/26/2025 5:13 PM EDT) Pathologist [facility] Blakely Antibody <0.8 <7.0 Andria U/mL 03/28/2025 7:33 AM EDT [facility] Comment: <7 Andria U/mL Negative 7-10 Andria U/mL Equivocal >10 Andria U/mL Positive RN POST PARTUM (U1RNP) Antibody <2.7 <5.0 Andria U/mL 03/28/2025 7:33 AM EDT [facility] Comment: <5 Andria U/mL Negative 5-10 Andria U/mL Equivocal >10 Andria U/mL Positive Blood Venipuncture / Unknown 03/26/2025 5:13 PM EDT 03/26/2025 5:13 PM EDT us Chava Goddard MD LAB BLOOD ORDERABLES Clarissa l Result Performing Organization Address City/[facility]/ZIP Co de Phone Number [facility] [address] [place] [address] * Myeloperoxidase antibody (03/26/2025 5:13 PM EDT) [facility] Myeloperoxidase Ab <0.3 <3.5 Andria U/mL 03/28/2025 7:33 AM EDT [facility] Comment: <3.5 Andria U/mL Negative 3.5-5 Andria U/mL Equivocal >5.0 Andria U/mL Positive Blood Venipuncture / Unknown 03/26/2025 5:13 PM EDT 03/26/2025 5:13 PM EDT Result [facility] Chava Goddard MD LAB BLOOD ORDERABLES Clarissa l Result Performing Organization Address City/[facility] Co de Phone Number [facility] [address] [place] [address] * Hepatitis C Ab with reflex to HCV PCR (03/26/2025 5:13 PM EDT) [facility] Hepatitis C Antibody Negative Negative 03/26/2025 10:39 PM EDT [facility] Comment:A negative result do es not exclude HCV infection, since antibodies are not detectable for 4-8 weeks after initial infection, or may not develop in compromised hosts. In high-risk individuals, repeat antibody testing in 2 months and/or HCV RNA PCR should be considered. Blood Venipuncture / Unknown 03/26/2025 5:13 PM EDT 03/26/2025 5:13 PM EDT Chava Godadrd MD LAB BLOOD ORDERABLES Clarissa l Result [facility] [address] [place] [address] * Hepatitis B surface antigen ([facility]) (03/26/2025 5:13 PM EDT) [facility] Hepatitis B Surface Antigen Negative Negative 03/26/2025 10:38 PM EDT [facility] Blood Venipuncture / Unknown 03/26/2025 5:13 PM EDT 03/26/2025 5:13 PM EDT Chava Goddard MD LAB BLOOD ORDERABLES Clarissa l Result [facility] [address] [place] [address] * C4 complement ([facility] ) (03/26/2025 5:13 PM EDT) C4 Complement 22 10 - 40 mg/dL 03/26/2025 8:33 PM EDT [facility] Blood Venipuncture / Unknown 03/26/2025 5:13 PM EDT 03/26/2025 5:13 PM EDT Chava Goddard MD LAB BLOOD ORDERABLES Clarissa l Result Performing Organization Address [facility]/ZIP Co de Phone Number [facility] [address] [place] [address] * C3 complement (03/26/2025 5:13 PM EDT) C3 Complement 148 90 - 180 mg/dL 03/26/2025 8:33 PM EDT [facility] Blood Venipuncture / Unknown 03/26/2025 5:13 PM EDT 03/26/2025 5:13 PM EDT Chava Goddard MD LAB BLOOD ORDERABLES Clarissa l Result [facility] [address] [place] [address] * (ABNORMAL) C-reactive protein (CRP) (03/26/2025 5:13 PM EDT) CRP, High Sensitivity 7.6(H) See comment mg/L 03/26/2025 8:33 PM EDT [facility] Comment: hs-CRP [...] ORDERABLES Clarissa l Result Performing Organization Address City/[facility]/ZIP Co de Phone Number [facility] [address] [place] [address] * (ABNORMAL) Protein, total w/creatinine, urine, random ([facility]) (03/26/2025 5:01 PM EDT) Pathologist [facility] Protein/Creat inine Ratio, Urine, Random 0.33(H) <0.10 mg/mg Cr 03/26/2025 8:26 PM EDT [facility] Protein Urine Random 1.03 Reference Range Not Established g/L 03/26/2025 8:26 PM EDT [facility] Creatinine, Urine, Random 311 Reference Range Not Established mg/dL 03/26/2025 8:26 PM EDT [facility] Urine Collection / Unknown 03/26/2025 5:01 PM EDT 03/26/2025 5:01 PM EDT Chava Goddard MD URINE ORDERABLES Final Re sult [facility] [address] [place] [address] * (ABNORMAL) Urinalysis-macroscopic w/reflex microscopic (03/26/2025 5:01 PM EDT) Clarity, UA Cloudy(A) Clear 03/26/2025 8:06 PM EDT [facility] Color, UA Yellow Yellow, Colorless 03/26/2025 8:06 PM EDT [facility] Specific [place], UA 1.027 1.005 - 1.030 03/26/2025 8:06 PM EDT [facility] pH, UA 5.5 5.5 - 7.5 03/26/2025 8:06 PM EDT [facility] Protein, UA 1+(A) Negative, Trace 03/26/2025 8:06 PM EDT [facility] Glucose, UA Negative Negative 03/26/2025 8:06 PM EDT [facility] Ketones, UA 1+(A) Negative 03/26/2025 8:06 PM EDT [facility] Blood, UA 2+(A) Negative 03/26/2025 8:06 PM EDT [facility] Bilirubin, UA Negative Negative 03/26/2025 8:06 PM EDT [facility] Leukocytes, UA 4+(A) Negative 03/26/2025 8:06 PM EDT [facility] Nitrite, UA Negative Negative 03/26/2025 8:06 PM EDT [facility] Urobilinogen, UA <2.0 <=2.0 mg/dL 03/26/2025 8:06 PM EDT [facility] Urine Collection / Unknown 03/26/2025 5:01 PM EDT 03/26/2025 5:01 PM EDT us Chava Nurys Goddard MD URINE ORDERABLES Final Re sult [facility] [address] [place] [address] * (ABNORMAL) Urinalysis-macroscopic w/reflex microscopic (02/16/2025 5:17 PM EDT) Clarity, UA Clear Clear 02/16/2025 9:15 PM EDT [facility] Color, UA Yellow Yellow, Colorless 02/16/2025 9:15 PM EDT [facility] Specific [place], UA 1.034(H) 1.005 - 1.030 02/16/2025 9:15 PM EDT [facility] pH, UA 6.0 5.5 - 7.5 02/16/2025 9:15 PM EDT [facility] Protein, UA 1+(A) Negative, Trace 02/16/2025 9:15 PM EDT [facility] Glucose, UA Negative Negative 02/16/2025 9:15 PM EDT [facility] Ketones, UA Trace(A) Negative 02/16/2025 9:15 PM EDT [facility] Blood, UA 1+(A) Negative 02/16/2025 9:15 PM EDT [facility] Bilirubin, UA Negative Negative 02/16/2025 9:15 PM EDT [facility] Leukocytes, UA 3+(A) Negative 02/16/2025 9:15 PM EDT [facility] Nitrite, UA Negative Negative 02/16/2025 9:15 PM EDT [facility] Urobilinogen, UA <2.0 <=2.0 mg/dL 02/16/2025 9:15 PM EDT [facility] Urine Collection / Unknown 02/16/2025 5:17 PM EDT 02/16/2025 5:17 PM EDT us Chava Goddard MD URINE ORDERABLES Final Re sult [facility] [address] [place] [address] documented in this encounter Visit Diagnoses Diagnosis Systemic lupus erythematosus, unspecified (HC Code) (HC CODE)- Primary Encounter for long-term (current) drug use Encounter for long-term (current) use of other medications Systemic lupus erythematosus (HC Code) (HC CODE) Systemic lupus erythematosus documented in this encounter Care Teams Textile Engineer Relationship Specialty Start Date End Date Danyell Sams MD [address] [place] [phone] PCP - General Internal Medicine 08/18/24 documented as of this encounter
--- OUTSIDE RECORDS SUMMARY | 2025-07-03 11:01 | XMS_ITS ---
[...] IUD 52 mg (20.1 mcg/24 hour) active Allergies Allergen Reaction Severity Comment Documented Date Source Status [facility] OTHER (SEE COMMENTS) Itchy mouth 01/07/2024 [facility] active METOCLOPRAMIDE [facility] PROCHLORPERAZINE [facility] TRICYCLIC ANTIDEPRESSANTS AND TRICYCLIC COMPOUNDS SHOCK [facility] VENLAFAXINE OTHER (SEE COMMENTS) Heart palpitations, hyperactivity [facility] Problems Problem Status Onset Date Problem Type Date of Resoluti on Source Hidradenitis suppurativa active 2024-01-07 [facility]Act [facility] Psoriasis active 2024-01-[address] ProblemAct [facility] C SLE (systemic lupus erythematosus) active 2024-01-07 ProblemAct [facility] Raynaud phenomenon active 2024-01-07 ProblemAct [facility] Immunizations Vaccine Date Source Lot Number Status Influenza, split virus, triv alent, Preservative Free 08/02/2024 [facility] [id number] completed Influenza, injectable, MDCK, quad, preservative free 07/31/2023 [facility] [id number] completed COVID-19, MODERNA 12Y+, 0.5 mL 11/13/2020 [facility] 031L2 0A completed COVID-19, MODERNA 12Y+, 0.5 mL 10/16/2020 [facility] 012L2 0A completed Influenza, injectable, MDCK, quad, preservative free 06/27/2020 [facility] [id number] completed Encounters Encounter Type Encounter Reason Primary Diagnosis Location Date Ambulatory [facility] 01/13/20 25 Care Team Organization Name Specialty Phone Email Start Date End Da te [facility]- Other [facility]PSH[facility] Primary Care 025
--- OUTSIDE RECORDS SUMMARY | 2025-07-03 11:01 | XMS_ITS | Encounter Summary ---
Author Organization [facility] Address [address] [place] [address] Care Team Providers Care Polysomnographer Name Role Phone Danyell Sams MD Primary Care Provider [phone] Encounter Details Date Type Department Care Team ([facility] Contact Info) Description 01/19/2025 Scanned Document Medical Dermatology at [address] [place] [address], [address] [place], [place] [address] Chava Goddard MD [address] [place] [address] [phone] Social History Tobacco Use Types Packs/Day Years [...] as of this encounter Plan of Treatment Not on file documented as of this encounter Goals Goal Patient Goal Type Associated Problems Recent Progress Patient-Stated? Author RxSp Therapeutic Goal General Not started(01/06 12:10 PM EDT) No Margarita Wu, PharmD Note: Lupus: Prevent increased number of flares. Good symptom control MTPs must be opened for patients not making appropriate progress towards their established therapeutic goals. Patient's progress towards goal: documented as of this encounter Visit Diagnoses Not on filedocumented in this encounter Care Teams Polysomnographer Relationship Specialty Start Date End Date Danyell Sams MD [address] [place] [phone] PCP - General Internal Medicine 08/18/24 documented as of this encounter
--- OUTSIDE RECORDS SUMMARY | 2025-07-03 11:01 | XMS_ITS | Encounter Summary ---
Author Organization [facility] Address [address] [place] [id number] Care Team Providers Care Tank Cooper Name Role Phone Danyell Sams MD Primary Care Provider [phone] Reason for Visit * Reason Onset Date Comments Other 02/14/2025 Encounter Details Date Type Department Care Team ([facility] Contact Info) Description 02/14/2025 Telephone [facility] at [address] [place] [address] [phone] Stevie Cornelius MD [address] [place] [address] [phone] Other Social History Tobacco Use Types Packs/Day Years [...] PM EDT documented as of this encounter Miscellaneous Notes * Telephone Encounter - Nichole Hitchcock - 02/14/2025 8:[address] [place] office req. OV notes (02/13/25) to be faxed over documented in this encounter Plan of Treatment Not on [...] on filedocumented in this encounter Care Teams Tank Cooper Relationship Specialty Start Date End Date Danyell Sams MD [address] [place] [address] PCP - General Internal Medicine 08/18/24 documented as of this encounter
--- OUTSIDE RECORDS SUMMARY | 2025-07-03 11:01 | XMS_ITS | Encounter Summary ---
Author Organization [facility] Address [address] [place] [address] Care Team Providers Care Manager Of Allied Health Services Name Role Phone Danyell Sams MD Primary Care Provider [phone] Encounter Details Date Type Department Care Team (Late st Contact Info) Description 05/05/2025 Transcribed Orders [facility] [address] [place], [place] [address] Chava Goddard MD [address] [place] [address] [phone] Pus in urine (Primary Dx) Social History Tobacco Use Types [...] Type Priority Associated Diagnoses Orde r Schedule Urine culture Microbiology Routine Pus in urine Expected: 05/05/2025, Expires: 07/05/2026 documented as of this encounter Goals Goal Patient Goal Type Associated Problems Recent Progress Patient-Stated? Author RxSp Therapeutic Goal General Not started(01/06 12:10 PM EDT) Margarita Vergara, RommelD Note: Lupus: Prevent increased number of flares. Good symptom control MTPs must be opened for patients not making appropriate progress towards their established therapeutic goals. Patient's progress towards goal: documented as of this encounter Visit Diagnoses Diagnosis Pus in urine- Primary Other nonspecific finding on examination of urine documented in this encounter Care Teams Manager Of Allied Health Services Relationship Specialty Start Date End Date Danyell Sams MD [address] [place] [address] PCP - General Internal Medicine 08/18/24 documented as of this encounter
--- OUTSIDE RECORDS SUMMARY | 2025-07-03 11:01 | XMS_ITS | Encounter Summary ---
Author Organization [facility] and [facility] Address [address] [place] [phone] Care Team Providers Care Abrading Machine Tender Name Role Phone Danyell Sams MD Primary Care Provider [phone] Encounter Details Date Type Department Care Team (Latest Contact Info) Description 01/22/2025 Transcribed Orders [facility] [address] [place] [address] Chava Goddard MD [address] [place] [phone] Systemic lupus erythematosus (HC Code) (Primary Dx); Rash and other nonspecific skin eruption Social History Tobacco Use Types Packs/Day Years [...] documented as of this encounter Results * Cryoglobulin (01/22/2025 9:38 AM EDT) Cryoglobulin Negative Negative 01/29/2025 3:56 PM EDT [facility] DEPARTMENT OF LABORATORY MEDICINE Blood Venipuncture / Unknown 01/22/2025 9:38 AM EDT 01/22/2025 9:54 AM EDT us Chava Goddard MD LAB BLOOD ORDERABLES Clarissa l Result [facility]PARTMENT OF LAB[facility]AT[facility] MEDICINE [address] [place] [address] documented in this encounter Visit Diagnoses Diagnosis Systemic lupus erythematosus (HC Code) (HC CODE)- Primary Systemic lupus erythematosus Rash and other nonspecific skin eruption documented in this encounter Care Teams Abrading Machine Tender Relationship Specialty Start Date End Date Danyell Sams MD [address] [place] [address] PCP - General Internal Medicine 08/18/24 documented as of this encounter
--- OUTSIDE RECORDS SUMMARY | 2025-07-03 11:01 | XMS_ITS | Encounter Summary ---
Author Organization [facility] Address [address] [place] [address] Care Team Providers Care State Inspector Name Role Phone Danyell Sams MD Primary Care Provider [phone] Encounter Details Date Type Department Care Team ([facility] st Contact Info) Description 04/02/2025 Scanned Document Medical Dermatology at [address] [place] [address], [address] [place], [place] [address] Chava Goddard MD [address] [place] [phone] Social History Tobacco Use Types Packs/Day Years [...] on filedocumented in this encounter Care Teams State Inspector Relationship Specialty Start Date End Date Danyell Sams MD [address] [place] [address] PCP - General Internal Medicine 08/18/24 documented as of this encounter
--- OUTSIDE RECORDS SUMMARY | 2025-07-03 11:01 | XMS_ITS ---
Author Organization [facility] 20 [facility] Address [address] [place] [address] Phone Care Team Providers Care Visiting Professor Name Role Phone Danyell Sams MD Primary Care Provider [phone] Rx Lupus Status:Enrolled (Active) Start date:01/06/2024 Enrollment date:01/07/2024 Enrollment reason:Identified from a specialty prescription Current support & services provided:Refill Management, Copay Maximizer Linked medications:belimumab (Active) Linked problems:SLE (systemic lupus erythematosus) (HC Code) (HC CODE) (Active) Overview 04/12/25: Pt is [facility], elected to remain opted out of clinical management -DA Continued Care and Services Coordination
--- OUTSIDE RECORDS SUMMARY | 2025-07-03 11:01 | XMS_ITS | Clinical Summary ---
Author Organization [facility] 20 [facility] Address [address] [place] [address] Phone Care Team Providers Care Printed Circuit Boards Stripper Etcher Name Role Phone Danyell Sams MD Primary Care Provider [phone] Allergies Active Allergy Reactions Criticality Noted Date Comments Prochlorperazine Unknown 01/07/2024 Raw Fruit Other (See Comments) Medium 01/07/2024 Itchy mouth Metoclopramide Unknown 01/07/2024 Raw Vegetable Other (See Comments) Medium 01/07/2024 Itchy mouth Tricyclic Antidepressants And Tricyclic Compounds Shock 01/07/2024 Venlafaxine Palpitations,Othe r (See Comments) Medium 01/07/2024 Heart palpitations, hyperactivity [place] Other (See Comments) Medium 01/07/2024 Itchy mouth [...] type, unspecified organ involvement status (HC Code) (HC CODE),Psoriasis, [place] allergy,Mild asthma without complication, unspecified whether persistent,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 6.7 g 5 Active hydroxychloroqui ne (PLAQUENIL) 200 mg tablet Take 2 tablets (400 mg total) by mouth daily. 180 tablet 1 04/17/2025 8:20 AM EDT 5 Active belimumab (BENLYSTA) 200 mg/mL auto-injector Inject 1 mL (200 mg total) under the skin every 7 days. Inject into upper thigh or abdomen; rotate sites. 4 mL 2 06/06/2025 8:54 AM EDT 5 Active ergocalciferol (DRISDOL) 1,250 mcg (50,000 unit) capsule 5 Active Active Problems Problem Noted Date Diagnosed Date Hidradenitis suppurativa 01/07/2024 Psoriasis 01/07/2024 Raynaud phenomenon 01/07/2024 SLE (systemic lupus erythematosus) (HC Code) 08/2024 Encounters Date Type Department Care Team Description 06/05/2025 Specialty Pharmacy [facility] [address] [place] [address] Kyra Haynes, PharmD 05/10/2025 [facility]ty [facility]acy [facility] [address] [place] [address] Tressa Quintero, STAGE ELECTRICIAN HELPER 05/05/2025 Transcribed Orders [facility] [address] [place] [address] Chava Goddard MD Pus in urine (Primary Dx) 04/16/2025 Specialty [facility]acy [facility] [address] [place] [address] Yee Larsen, STAGE ELECTRICIAN HELPER 04/10/2025 Results Follow-Up Medical Dermatology at [address] [place] [address], [address] [address] Stevie Cornelius MD Dermpath biopsy (YMG) 04/06/2025 10:10 AM EDT Follow Up Medical Dermatology at [address] [place] [address], [address] [address] Stevie Cornelius MD Rash (Primary Dx) 04/02/2025 Scanned Document Medical Dermatology at [address] [place] [address], [address] [address] Chava Goddard MD 04/02/2025 Telephone Medical Dermatology at [address] [place] [address], [address] [address] Stevie Cornelius MD Appointment from Last 3 Months Immunizations Immunization Administration [...] 08/18/2024 9:25 AM EST Plan of Treatment Health Maintenance Due Date Last Done Comments HIV screening 2009 Pneumococcal Vaccine (2 - 49 years) (1 of 2 - PCV) 2015 Tetanus adult (Td q 10,TDAP once) 2016 Cervical cancer screening 2017 Influenza vaccine 04/27/2025 08/02/2024, 07/31/2023, 06/27/2020 Covid-19 vaccine series ( season) 2025 07/31/2023, 11/13/2020, 10/16/2020 RSV Immunization (1 - 1-dose 75+ series) 2071 Hepatitis C screening Completed 03/26/2025 Meningococcal B Vaccine Aged Out No l onger eligible based on patient's age to complete this topic Meningococcal Vaccine Aged Out No toshia janny [...] Procedure Name Priority Date/Time Associated Diagnosis Comments DERMPATH BIOPSY (YMG) Routine 04/06/2025 12:00 AM EDT Rash HEPATITIS C AB WITH REFLEX TO HCV PCR Routine 03/26/2025 5:13 PM EDT Systemic lupus erythematosus, unspecified (HC Code) Encounter for long-term (current) drug use Systemic lupus erythematosus (HC Code) from Last 3 Months or Most Recently Relevant to Health Maintenance Results * Dermpath biopsy (YMG) (04/06/2025 12:00 AM EDT) Dermpath Biopsy Results [facility] [address] [address] PATIENT: HERNAN WILL CASE: [id number] [facility] MR#: [id number] : 1995 Physician: Stevie Cornelius M.D. 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 CLINICAL IMPRESSION PROVIDED TO LABORATORY: Favor GA GROSS DESCRIPTION: 3x3x3 mm punch MICROSCOPIC DESCRIPTION: Original and multiple deeper sections were examined. There is a subtle increase in capillaries that is likely related to the site (ankle). There is a sparse lymphocytic infiltrate around vessels. Neutrophils are not prominent. Final Diagnosis performed by Seema John M.D. Electronically signed 04/09/2025 4:18PM [facility] Skin 04/06/2025 04/09/2025 us Stevie Cornelius MD PATHOLOGY/CYTOLOGY OR DERABLES Final Result Performing Organization Address City/[facility] Co de Phone Number [facility] [address] [facility] [id number] [place] [address] * Hepatitis C Ab with reflex to HCV PCR (03/26/2025 5:13 PM EDT) Hepatitis C Antibody Negative Negative 03/26/2025 10:39 PM EDT [facility] DEPARTMENT OF LABORATORY MEDICINE Comment:A negative result do es not exclude HCV infection, since antibodies are not detectable for 4-8 weeks after initial infection, or may not develop in compromised hosts. In high-risk individuals, repeat antibody testing in 2 months and/or HCV RNA PCR should be considered. Blood Venipuncture / Unknown 03/26/2025 5:13 PM EDT 03/26/2025 5:13 PM EDT Chava Nurys Goddard MD LAB BLOOD ORDERABLES Clarissa l Result Performing Organization Address [facility] Co de Phone Number [facility] DEPARTMENT OF LABORATORY MEDICINE [address] [place] [id number] [phone] from Last 3 Months or Most Recently Relevant to Health Maintenance Insurance [employer] on file C[employer]NA on file on file Care Teams Printed Circuit Boards Stripper Etcher Relationship Specialty Start Date End Date Danyell Sams MD [address] [place] [address] PCP - General Internal Medicine 08/18/24
--- OUTSIDE RECORDS SUMMARY | 2025-07-03 11:01 | XMS_ITS | Encounter Summary ---
Author Organization [facility] and [facility] Address [address] [place] [phone] Care Team Providers Care Service Engine Repairer Name Role Phone Danyell Sams MD Primary Care Provider [phone] Encounter Details Date Type Department Care Team ([facility] st Contact Info) Description 04/07/2023 Transcribed Orders [address] [address] Lawrence Lee MD [address] [place] [phone] Pre-employment health screening examination (Primary Dx) [...] on file documented as of this encounter Results * Hepatitis B surface antibody ([facility] ) (04/07/2023 11:29 AM EDT) Hepatitis B Surface Antibody 27.14 > or = 12 mIU/mL 04/07/2023 6:07 PM EDT [facility] DEPARTMENT OF LABORATORY MEDICINE Comment: Patient [...] MD LAB BLOOD ORDERABLES Fi nal Result [facility] DEPARTMENT OF LABORATORY MEDICINE [address] [place] [address] * (ABNORMAL) QuantiFERON-TB (04/07/2023 11:29 AM EDT) [facility] QuantiFERON-TB Gold In-Tube Indetermi sherin(A) Negative 04/08/2023 7:48 PM EDT [facility] DEPARTMENT OF LABORATORY MEDICINE Comment: Result [...] the QuantiFERON TB Gold Plus assay from [employer] which includes the detection of response to CD8+ T cells and as of November 25, 2020, it is being performed on an automated platform developed by [employer] in partnership with [employer]. Blood Venipuncture / Unknown 04/07/2023 11:29 AM EDT 04/07/2023 3:54 PM EDT us Lawrence Lee MD LAB BLOOD ORDERABLES Fi nal Result [facility] DEPARTMENT OF LABORATORY MEDICINE [address] [place] [address] documented in this encounter Visit Diagnoses Diagnosis Pre-employment health screening examination- Primary Health examination of defined subpopulation documented in this encounter Care Teams Service Engine Repairer Relationship Specialty Start Date End Date Danyell Sams MD [address] [place] [phone] PCP - General Internal Medicine 08/18/24 documented as of this encounter
== END 2025-07-03 10:14 | disposition home or self-care (01) ==
LOC: HO.RHES 09:40
PROVIDERS: PCP Internal Medicine Rheumatology; Visit Provider Internal Medicine Rheumatology
DX: M32.9 Systemic lupus erythematosus, unspecified (principal); R21 Rash and other nonspecific skin eruption; Z79.899 Other long term (current) drug therapy; E55.9 Vitamin D deficiency, unspecified; R82.81 Pyuria
CPT/HCPCS: 99214